=== PATIENT | male | born 1975 | race Hispanic/Latino ===

== ENCOUNTER 2017-12-12 03:13 | Inpatient (IN) | payer OTHER ==
[2017-12-12] MEDS ORDERED: ASPIRIN ONE (04:07)
[2017-12-12] MEDS ORDERED: NITRO-BID 2% TP ONE ×2 (04:09→07:17)
--- NOTE | 2017-12-12 04:16 | Emergency Department Report ---
ED Shortness of Breath HPI - General Chief Complaint: Dyspnea/Respdistress Stated Complaint: CHEST PAIN Time Seen by Provider: 12/12/17 03:40 Source: patient Mode of arrival: Ambulatory Limitations: No Limitations - History of Present Illness Initial Comments: 42-year-old man with history of heart failure, presents with 3-4 day history of progressive shortness of breath and swelling of extremities. He denies any chest pain, but has increasing shortness of breath, initially on exertion, but now at rest, is diaphoretic, tachycardic, and with swollen lower extremities. He has no cough or congestion, no fever chills or diaphoresis, no abdominal pain , no back pain. Patient has been noncompliant with medicines, due to loss of insurance, inability to afford medications, but has not been on any medications for either his hypertension or heart failure for at least a year. He also has not had any routine medical care during that time as well. Past medical history is significant for previously described heart failure, no definite history of myocardial infarction, but patient has had a stroke several years ago with minimal residual, and he also has a history of aortic dissection. He briefly smoked in his teenage years, but has no underlying lung disease, no COPD, no asthma. - Related Data Previous Rx's Medication Instructions Recorded Last Taken Type Aspirin [Aspirin BABY CHEW TAB] 81 mg PO QDAY #30 tab.chew 05/04/14 12/11/17 Rx Allergies Allergy/AdvReac Type Severity Reaction Status Date / Time No Known Allergies Allergy Verified 12/12/17 03:37 ED Review of Systems ROS: Stated complaint: CHEST PAIN Other details as noted in HPI Constitutional: diaphoresis, weakness. denies: fever ENT: denies: ear pain, throat pain Respiratory: shortness of breath, SOB with exertion. denies: wheezing Cardiovascular: palpitations, dyspnea on exertion. denies: chest pain, syncope , paroxysmal nocturnal dyspnea Endocrine: excessive sweating, flushing. denies: intolerance to cold, intolerance to heat Gastrointestinal: denies: abdominal pain, nausea, diarrhea Genitourinary: denies: urgency, dysuria Musculoskeletal: denies: back pain, joint swelling, arthralgia Skin: denies: rash, lesions Neurological: denies: headache, weakness, paresthesias Psychiatric: denies: anxiety, depression Hematological/Lymphatic: denies: easy bleeding, easy bruising ED Past Medical Hx - Past Medical History Hx Hypertension: Yes Hx Congestive Heart Failure: Yes Hx Diabetes: No (borderline) Hx Asthma: No Hx COPD: No Additional medical history: previous abdominal aortic dissection; [place] Palsy - Surgical History Additional Surgical History: Fractured jaw repair - Social History Smoking Status: Never Smoker Substance Use Type: Alcohol - Medications Home Medications: Home Medications Medication Instructions Recorded Confirmed Last Taken Type Aspirin [Aspirin BABY CHEW TAB] 81 mg PO QDAY #30 tab.chew 05/04/14 12/12/17 Rx ED Physical Exam - General Limitations: No Limitations General appearance: alert, anxious, in distress (diaphoretic, tachypneic, tachycardic), other (diaphoretic) - Head Head exam: Present: atraumatic, normocephalic - Eye Eye exam: Present: PERRL - ENT ENT exam: Present: normal exam, mucous membranes moist - Neck Neck exam: Present: normal inspection, full ROM. Absent: tenderness - Respiratory Respiratory exam: Present: normal lung sounds bilaterally, respiratory distress (decreased oxygen saturation, 89-90% on room air), rales (a few posterior rales , bilateral). Absent: wheezes, rhonchi - Cardiovascular Cardiovascular Exam: Present: tachycardia. Absent: regular rate, systolic murmur, diastolic murmur - GI/Abdominal GI/Abdominal exam: Present: soft, normal bowel sounds, other (obese). Absent: tenderness - Rectal Rectal exam: Present: deferred - Extremities Exam Extremities exam: Present: full ROM, pedal edema. Absent: tenderness, calf tenderness - Back Exam Back exam: Present: normal inspection. Absent: tenderness - Neurological Exam Neurological exam: Present: alert, oriented X3, CN II-XII intact. Absent: motor sensory deficit - Psychiatric Psychiatric exam: Present: agitated, anxious - Skin Skin exam: Present: warm, diaphoretic ED Course Vital Signs 12/12/17 12/12/17 12/12/17 03:30 03:37 03:46 Temperature 36.6 C Pulse Rate 165 H 51 L 120 H Respiratory 41 H 26 H 23 Rate Blood Pressure 116/83 175/134 O2 Sat by Pulse 88 90 96 Oximetry 12/12/17 12/12/17 12/12/17 03:51 04:00 04:16 Temperature Pulse Rate 119 H 149 H Respiratory 26 H 20 21 Rate Blood Pressure 175/134 146/122 O2 Sat by Pulse 95 97 96 Oximetry 12/12/17 12/12/17 04:30 04:46 Temperature Pulse Rate 151 H 137 H Respiratory 26 H 16 Rate Blood Pressure 175/134 176/133 O2 Sat by Pulse 95 96 Oximetry - Reevaluation(s) Reevaluation #1: 12/12/17 06:11 Patient's blood pressure significantly improved, after Cardene drip initiated, blood pressure now 140/90 on the patient still diaphoretic, feels flushed, but this preceded onset of this medication. Furosemide has also been administered. Otherwise he is feeling stable, looks much more comfortable. - Consultations Consultation #1: 12/12/17 06:12 Dr. Gillis contacted at 0530 hours, will admit patient, will need ICU admission since is currently receiving IV antihypertensive drip, the patient has elevated d-dimer, and will need CT angiography to rule out pulmonary embolism, and will also have abdominal aortic angiography to evaluate status of dissection. ED Medical Decision Making - Lab Data Result diagrams: 12/12/17 03:49 12/12/17 03:52 - Medical Decision Making Patient's findings are compatible with acute heart failure, with a markedly elevated BNP of 7900, but he also has a significantly elevated d-dimer. He has required a Cardene drip for management of his blood pressure to decrease afterload on his heart, and is also been given IV Lasix. With Cardene drip continuing, he will need ICU admission for the time being. - Differential Diagnosis heart failure, myocardial infarction, pulmonary embolism, dissection Critical Care Time: Yes Critical care attestation.: If time is entered above; I have spent that time in minutes in the direct care of this critically ill patient, excluding procedure time. Critical Care Time: 60 minutes of critical care time was provided in managing this patient with decompensated heart failure with uncontrolled hypertension secondary to medication noncompliance, requiring intravenous medication for control of blood pressure and further evaluation for additional complicating issues such as pulmonary embolism, or continued dissection of this previous abdominal aortic dissection. No billable procedures were performed during this examination. ED Disposition Clinical Impression: Aortic dissection, thoracoabdominal, Acute respiratory distress Heart failure Qualifiers: Heart failure type: systolic Heart failure chronicity: acute on chronic Qualified Code(s): I50.23 - Acute on chronic systolic (congestive) heart failure Hypertension Qualifiers: Hypertension type: essential hypertension Qualified Code(s): I10 - Essential ( primary) hypertension Dyspnea Qualifiers: Dyspnea type: acute respiratory distress Qualified Code(s): R06.03 - Acute respiratory distress Disposition: -09 OP ADMIT IP TO THIS HOSP Is pt being admited?: Yes Does the pt Need Aspirin: No Condition: Stable Instructions: Hypertension (ED) Referrals: PRIMARY CARE, [Primary Care Provider] - 3-5 Days Time of Disposition: 05:30
--- NOTE | 2017-12-12 04:18 | XRay Report ---
FINAL REPORT PROCEDURE: XR CHEST 1V AP TECHNIQUE: Chest radiograph anteroposterior view. CPT 93324 HISTORY: Dyspnea COMPARISON: No prior studies are available for comparison. FINDINGS: Heart: Heart size is slightly pronounced. Mediastinum/Vessels: Normal. Lungs/Pleural space: Normal. Bony thorax: No acute osseous abnormality. Life support devices: None. IMPRESSION: There is no evidence of an acute cardiopulmonary process. Mild cardiomegaly.
[2017-12-12 04:24] LABS: Basophils # (Auto) 0.1 K/mm3 (0.0-0.1); Basophils % (Auto) 0.7 % (0.0-1.8); Eosinophils # (Auto) 0.1 K/mm3 (0.0-0.4); Eosinophils % (Auto) 1.2 % (0.0-4.3); Hematocrit 42.1 % (35.5-45.6); Hemoglobin 13.5 gm/dl (11.8-15.2); Lymphocytes # (Auto) 1.8 K/mm3 (1.2-5.4); Lymphocytes % (Auto) 16.4 % (13.4-35.0); Mean Corpuscular HGB Conc 32 % (32-34); Mean Corpuscular Hemoglobin 26 pg (28-32); Mean Corpuscular Volume 81 fl (84-94); Monocytes # (Auto) 0.8 K/mm3 (0.0-0.8); Monocytes % (Auto) 7.7 % (0.0-7.3); Platelet Count 205 K/mm3 (140-440); Red Blood Count 5.18 M/mm3 (3.65-5.03); Red Cell Distribution Width 17.5 % (13.2-15.2)
[2017-12-12 04:36] LABS: INR 1.05 (0.87-1.13)
[2017-12-12 04:49] LABS: Alanine Aminotransferase 61 units/L (7-56); Albumin 3.3 g/dL (3.9-5); BUN/Creatinine Ratio 17; Blood Urea Nitrogen 19 mg/dL (9-20); Calcium 8.8 mg/dL (8.4-10.2); Hemolysis Index 0
[2017-12-12] MEDS ORDERED: CARDENE 50 MG in NACL 0.9% 250ML 230 ML IV SCH (05:00)
[2017-12-12] MEDS ORDERED: LASIX ONE (05:17)
--- NOTE | 2017-12-12 07:05 | Cat Scan Report ---
FINAL REPORT PROCEDURE: CT ANGIO CHEST TECHNIQUE: Computerized tomographic angiography of the chest was performed after the IV injection of iodinated nonionic contrast including image processing. The image data was postprocessed using 2-dimensional multiplanar reformatted (MPR) and 3-dimensional (MIP and/or volume rendered) techniques. HISTORY: difficulty breathing, elevated d dimer, hx HF COMPARISON: No prior studies are available for comparison. FINDINGS: Heart and pericardium: Normal. Thoracic aorta: The ascending aorta has a slight aneurysmal dilatation at 4.2 centimeters. There is some tortuosity and ectasia the aortic arch. Ectasias descending thoracic aorta is noted. In the distal descending thoracic aorta there is a dissection. Patient's history states there is a descending thoracic dissection. No prior images are available for review at this time.. Pulmonary vasculature: There is no evidence of pulmonary arterial emboli.. Lymph nodes: There are few scattered small lymph nodes in mediastinum these measure to 15 millimeters.. Lungs: Slight scattered infiltrates right lower and midlung, and left lower lung. The airway is patent.. Pleural space: No effusion, thickening, or pneumothorax. Musculoskeletal structures: No significant abnormality. IMPRESSION: There is no evidence of pulmonary arterial emboli. Descending thoracic aorta tortuosity and dissection noted in the distal descending thoracic aorta extending into the abdominal aorta and iliac arteries. The patient has a history of descending aortic aneurysm, no prior studies are available for review. Slight scattered infiltrates right lower and midlung as well as left lower lung is identified.
[2017-12-12] MEDS ORDERED: LASIX IV ONE (07:18)
[2017-12-12] MEDS ORDERED: ASPIRIN PO ONE (07:18)
--- NOTE | 2017-12-12 07:23 | Cat Scan Report ---
FINAL REPORT PROCEDURE: CT ANGIO ABDOMEN PELVIS TECHNIQUE: Computerized axial tomographic angiography of the abdomen and pelvis was performed after the IV injection of iodinated nonionic contrast. The image data was postprocessed using 2-dimensional multiplanar reformatted (MPR) and 3-dimensional (MIP and/or volume rendered) techniques. HISTORY: hx abd aortic dissection; eval status COMPARISON: No prior studies are available for comparison. FINDINGS: There is a descending thoracic aortic dissection starting in the distal thoracic descending aorta. The dissection extends through index into the bilateral common iliac arteries. Aneurysm of the infrarenal abdominal aorta measures 6.2 centimeters. Aneurysm of the iliac arteries is noted. On right common iliac artery measures 4.4 centimeters. On the left common iliac artery measures 4.8 centimeters. The dissection does not extend into the external iliac arteries or the femoral arteries. Superior mesenteric, celiac and inferior mesenteric arteries are opacified. Bilateral renal arteries are opacified. Correlation with previous aortic imaging would be of benefit this patient. No prior studies are available for review with this study. No evidence intestinal obstruction. Moderate fecal debris throughout the colon. The liver and spleen are normal. The gallbladder and pancreas are normal. No hydronephrosis. The osseous structures are appropriate for age with mild degenerative changes of the spine. IMPRESSION: Descending thoracic and abdominal aorta dissection extending through the bilateral common iliac arteries. Aneurysm of the infrarenal abdominal aorta measures 6.2 centimeters. Bilateral common iliac artery aneurysms are noted as described. The dissection does not extend into the external iliac or femoral arterial structures. Correlation with previous aortic imaging is recommended. The patient does have a history of aortic dissection. The above findings are discussed with the patient's ER physician Dr. Salvador at the time of dictation 0709 Eastern standard time on 12/12/2017
--- NOTE | 2017-12-12 08:34 | History and Physical Report ---
History of Present Illness Date of examination: 12/12/17 Date of admission: 12/12/17 06:07 Chief complaint: Chest pain and shortness of breath for 2 days History of present illness: Patient is 42 yo with history of hypertension, CHF, aortic aneurysm with chronic dissection. He presents with chest pain and shortness of breath for 2 days. Chest pain is mid sternal, 8 out of 10 in intensity, no radiation, worse on exertion. Shortness of breath also worse on exertion and lying flat. He states he has not taken any of his meds in more than 1 yr because he has no insurance, does not have a PCP and has no money. In ED, found to have rapid atrial fibrillation, CHF exacerbation, hypertensive emergency, chronic dissection aortic aneurysm. Will admit to ICU. Past History Past Medical History: heart failure, hypertension, other (Chronic aortic aneurysm dissection, borderline diabetes) Past Surgical History: Other (jaw surgery) Social history: , full code, other (Alcohol occasionally). denies: smoking, prescription drug abuse, IV drug use Family history: diabetes, hypertension Medications and Allergies Allergies Allergy/AdvReac Type Severity Reaction Status Date / Time No Known Allergies Allergy Verified 12/12/17 03:37 Home Medications Medication Instructions Recorded Confirmed Last Taken Type Aspirin [Aspirin BABY CHEW TAB] 81 mg PO QDAY #30 tab.chew 05/04/14 12/12/17 Rx Active Meds: Active Medications Nicardipine HCl 50 mg/ Sodium (Chloride) 250 mls @ 25 mls/hr IV TITR SILVIA; Protocol Last Titration: 12/12/17 07:42 Dose: 2.5 mg/hr, 12.5 mls/hr Labetalol HCl 200 mg/ Dextrose 200 mls @ 120 mls/hr IV TITR SILVIA; Protocol Review of Systems All systems: negative (No fever, no headache, no abd pain, no urinary symptoms. All other systems reviewed and are neg) Exam - Physical Exam Narrative exam: Constitutional; Not in acute distress,morbidly obese HEENT: Atraumatic, normocephalic Neck: supple, no lymphadenopathy, JVD or thyromegaly Lungs: Clear to auscultation, bilaterally, no wheeze, no crackles CVS; S1-S2 irregular, irregular,rapid, no murmurs, rubs or gallop, Abdomen; soft, non-tender, non distended,bowel sounds are normal, Musculoskeletal; Bilateral pitting lower ext edema, TRAVELING ACCOUNTANT: awake, alert,oriented x3, no focal neurological signs Psych:normal mood - Constitutional Vitals: Temp Pulse Resp BP Pulse Ox 97.8 F 130 H 29 H 155/115 96 12/12/17 03:37 12/12/17 08:00 12/12/17 08:00 12/12/17 08:00 12/12/17 08:00 Results - Labs CBC & Chem 7: 12/13/17 05:09 12/13/17 05:09 Labs: Abnormal lab results 12/12/17 12/12/17 12/12/17 Range/Units 03:49 03:52 03:52 RBC 5.18 H (3.65-5.03) M/mm3 MCV 81 L (84-94) fl MCH 26 L (28-32) pg RDW 17.5 H (13.2-15.2) % Ralls % (Auto) 7.7 H (0.0-7.3) % Seg Neutrophils % 74.0 H (40.0-70.0) % Seg Neutrophils # 7.9 H (1.8-7.7) K/mm3 D-Dimer 1391.51 H (0-234) ng/mlDDU Potassium 3.3 L (3.6-5.0) mmol/L Chloride 97.1 L (98-107) mmol/L Glucose 150 H (75-100) mg/dL AST 41 H (5-40) units/L ALT 61 H (7-56) units/L NT-Pro-B Natriuret Pep 7260 H (0-450) pg/mL Total Protein 5.9 L (6.3-8.2) g/dL Albumin 3.3 L (3.9-5) g/dL Assessment and Plan Atrial fibrillation with rapid ventricular response. Admit to ICU Cardizem 20mg iv x 1 dose stat, then cardizem drip, Obtain Echo Consult cardiology Hypertensive emergency. Initially started on cardene drip, but on hold because BP dropped. Will dc Cardene and start Cardizem drip to manage rapid afib and hypertensive emergency Chronic dissection aortic aneurysm Consult vasc surg Chest pain. cardiology consulted. Acute resp failure due to CHF exacerbation,rapid afib. Supplemental Oxygen. Pulm consulted Acute on chronic diastolic CHF. He has been out of meds for more than 1 yr. Give Lasix, Coreg, Strict fluid I/O Repeat Echo. EF was 55% in 2015 Borderline diabetes. Check A1C Fingerstick qac and hs Medical non compliance because he has no insurance and no money to buy meds or follow up with Doctors. Consult case management Full code status
[2017-12-12] MEDS ORDERED: MORPHINE IV PRN (08:38)
[2017-12-12] MEDS ORDERED: SODIUM CHLORIDE FLUSH SYRINGE 10 ML IV PRN (08:38)
[2017-12-12] MEDS ORDERED: CARDIZEM IV STA (08:43)
[2017-12-12] MEDS ORDERED: NORMODYNE 200 MG in D5W 160 ML IV SCH (09:00)
[2017-12-12] MEDS ORDERED: COREG PO SCH (10:00)
[2017-12-12] MEDS: K-DUR PO SCH ×2 (10:37→22:10)
[2017-12-12] MEDS: NORVASC PO SCH (10:37)
[2017-12-12] MEDS: PEPCID IV SCH ×2 (10:38→22:10)
[2017-12-12] MEDS: CARDIZEM/D5W 100MG/100ML 100 MG/100 ML BAG IV SCH ×2 (10:39→15:33)
[2017-12-12] MEDS: SODIUM CHLORIDE FLUSH SYRINGE 10 ML IV SCH (10:40)
--- NOTE | 2017-12-12 12:22 | Event Note ---
Date: 12/12/17 Cardiology consult. Full note dictated . .
--- NOTE | 2017-12-12 14:17 | Consultation ---
REASON FOR CONSULTATION: Hypertension and atrial fibrillation. HISTORY OF PRESENT ILLNESS: This 42-year-old patient known to have hypertension for more than 5 years, not on treatment for the last 2 years because of inability to buy the medication and no medical insurance. The patient came with shortness of breath for 4 days duration and swelling of lower extremities. In the Emergency Room, he was noted to have extremely high blood pressure in the range of 175/134. He was started on Cardene drip and blood pressure was noted to improve and is admitted for further management of heart failure and hypertension as well as atrial fibrillation with rapid ventricular rate. In the past, he was noted to have abdominal aortic dissection and distal thoracic dissection from echocardiogram and CT of the chest. He had cardiac catheterization in 2014 by Andres Singh, which revealed normal coronaries. REVIEW OF SYSTEMS: The patient has no history of diabetes mellitus or any known hyperlipidemia or thyroid disease. CARDIOVASCULAR: As mentioned before. He has history of heart failure and hypertension, not taking medications. GI: No nausea or vomiting. NEUROLOGICAL: No history of TIA or stroke. No history of headache. SOCIAL HISTORY: Details are not known. No history of smoking, but he does take alcohol. PHYSICAL EXAMINATION: GENERAL: The patient is in mild cardiorespiratory distress. VITAL SIGNS: His blood pressure today has been up to 196/122 and it has come down to 132/76. Pulse has been varying from 136 and the last pulse is about 86 per minute. Respirations 27 per minute. NECK: JVP is elevated at 40 degrees. CARDIOVASCULAR: Irregular rhythm, rapid heart rate. S3 is noted. Cannot hear any murmurs. LUNGS: Revealed bibasilar rales. ABDOMEN: Soft, nontender. Bowel sounds are active. EXTREMITIES: Femoral pulses felt well. EXTREMITIES: Reveal +2 edema. Peripheral pulses felt well. LABORATORY DATA: His hemoglobin is 13.1 g percent. MCV is 83. Potassium 3.3. His magnesium is 2.1. CK is 228. Troponin x 3 negative. Chest x-ray revealed mild cardiomegaly and haziness at the bases. CT of the chest revealed no evidence of pulmonary emboli. His aneurysmal dilatation of ascending aorta at 4.2 cm. Tortuosity and ectasia of the aortic arch is noted. Distal aorta showed dissection, which has been noted in 2014. Abdominal/pelvis CTA revealed a descending thoracic and abdominal aorta dissection extending through the bilateral common iliac arteries. Aneurysm of the infrarenal abdominal aorta measuring 6.2 cm. Bilateral common iliac artery aneurysms are noted. Dissection does not extend into external iliac or femoral arteries. Echocardiogram was done to aneurysm be reviewed. EKG revealed atrial fibrillation with rapid ventricular rate, left ventricular hypertrophy. CLINICAL IMPRESSION: 1. Hypertension, malignant. 2. Congestive heart failure, probably due to rapid heart rate and hypertension. Echocardiogram will be done for systolic or diastolic heart failure. 3. Atrial fibrillation with rapid ventricular rate. 4. Abdominal aortic aneurysm and distal thoracic artery aneurysm . DISCUSSION: The patient will be started on Cardizem drip to control the heart rate and also beta blockers, calcium blockers. We will obtain a Vascular Surgery consult. The aim is to control the heart rate and the blood pressure.Will anticoagulate once cleared by vascular surgery. JOB# [id number] JIMMY/TOI BEJARANO
--- NOTE | 2017-12-12 15:18 | Consultation ---
History of Present Illness Consult date: 12/12/17 Requesting physician: RAKEL ANDREA Reason for consult: obstructive sleep apnea, other (afib with RVR, aortic dissection, hypertensive emergency) History of present illness: 42 y/o obese male, with known hTN and unfortunate noncompliance secondary to lack of funding. Patient presented with chest pain, shortness of breath and found to be in hypertensive emergency. Placed on Cardene and Cardizem drip and transitioned to ICU. Has since been started on PO medication and remains on dilt drip but cardene is off. Past History Past Medical History: heart failure, hypertension, other (Chronic aortic aneurysm dissection, borderline diabetes) Past Surgical History: Other (jaw surgery) Social history: , full code, other (Alcohol occasionally). denies: smoking, prescription drug abuse, IV drug use Family history: diabetes, hypertension Medications and Allergies Allergies Allergy/AdvReac Type Severity Reaction Status Date / Time No Known Allergies Allergy Verified 12/12/17 03:37 Home Medications Medication Instructions Recorded Confirmed Last Taken Type Aspirin [Aspirin BABY CHEW TAB] 81 mg PO QDAY #30 tab.chew 05/04/14 12/12/17 Rx Active Meds: Active Medications Amlodipine Besylate (Norvasc) 10 mg PO QDAY [facility] Last Admin: 12/12/17 10:37 Dose: 10 mg Famotidine (Pepcid) 20 mg IV BID [facility] Last Admin: 12/12/17 10:38 Dose: 20 mg Furosemide (Lasix) 40 mg IV 0600,1800 [facility] Diltiazem HCl (Cardizem/D5w 100mg/100ml) 100 mg in 100 mls @ 5 mls/hr IV TITR SILVIA; Protocol Last Titration: 12/12/17 11:16 Dose: 15 mg/hr, 15 mls/hr Metoprolol Tartrate (Lopressor) 25 mg PO BID [facility] Morphine Sulfate (Morphine) 2 mg IV Q4H PRN PRN Reason: Pain, Moderate (4-6) Potassium Chloride (K-Dur) 40 meq PO BID [facility] Stop: 12/15/17 09:59 Last Admin: 12/12/17 10:37 Dose: 40 meq Sodium Chloride (Sodium Chloride Flush Syringe 10 Ml) 10 ml IV BID [facility] Last Admin: 12/12/17 10:40 Dose: 10 ml Sodium Chloride (Sodium Chloride Flush Syringe 10 Ml) 10 ml IV PRN PRN PRN Reason: LINE FLUSH Review of Systems All systems: negative Physical Examination Vital signs: Vital Signs Pulse Resp Pulse Ox 165 H 41 H 88 12/12/17 03:30 12/12/17 03:30 12/12/17 03:30 General appearance: no acute distress, alert, other (morbidly obese) Eyes: non-icteric ENT: oropharynx moist Neck: supple, other (large in circumference, greater than 17) Effort: mildly labored Ascultation: Bilateral: diminished breath sounds, rales Percussion: Bilateral: not dull Tactile fremitus: Bilateral: normal Cardiovascular: irregular rhythm (but currently rate controlled) Gastrointestinal: normoactive bowel sounds, soft, other (obese) Extremities: no cyanosis, edema normal mental status, non-focal exam mood appropriate, affect normal Results - Laboratory Findings CBC and BMP: 12/12/17 03:49 12/12/17 03:52 PT/INR, D-dimer PT 14.3 Sec. (12.2-14.9) 12/12/17 03:52 INR 1.05 (0.87-1.13) 12/12/17 03:52 D-Dimer 1391.51 ng/mlDDU (0-234) H 12/12/17 03:52 Abnormal lab findings: Abnormal Labs 12/12/17 12/12/17 12/12/17 03:49 03:52 03:52 RBC 5.18 H MCV 81 L MCH 26 L RDW 17.5 H Burt % (Auto) 7.7 H Seg Neutrophils % 74.0 H Seg Neutrophils # 7.9 H D-Dimer 1391.51 H Potassium 3.3 L Chloride 97.1 L Glucose 150 H Hemoglobin A1c Phosphorus AST 41 H ALT 61 H NT-Pro-B Natriuret Pep 7260 H Total Protein 5.9 L Albumin 3.3 L 12/12/17 12/12/17 06:41 12:05 RBC MCV MCH RDW Burt % (Auto) Seg Neutrophils % Seg Neutrophils # D-Dimer Potassium Chloride Glucose Hemoglobin A1c 6.3 H Phosphorus 4.70 H AST ALT NT-Pro-B Natriuret Pep Total Protein Albumin - Diagnostic Findings Chest x-ray: image reviewed (cardiomegaly, has some ground glass on CT of chest) Assessment and Plan 42 y/o obese male with acute respiratory failure secondary to hypertensive emergency and afib RVR and untreated sleep apnea. 1. Rate control and BP per cards. They will also determine the need for anticoagulation 2. Will order BIPAP therapy for QHS 3. Weight loss encouraged
--- NOTE | 2017-12-12 17:31 | Consultation ---
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 He states he is unsure who he followed up with. Since his initial diagnosis he has lost his insurance and he has been noncompliant with his antihypertensive medications, however he believes his blood pressure has been controlled well becuase he has not experienced his usual headaches, that he has when his pressure is elevated. He presented to the emergency department with a 2 day history of severe, worsening shortness of breath associated with midsternal chest pain. 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 He denies abdominal pain at this time and has no evidence of malperfusuion. Past History Past Medical History: heart failure, hypertension, other (Chronic aortic aneurysm dissection, borderline diabetes, morbid obesity) Past Surgical History: Other (jaw surgery) Social history: , full code, other (Alcohol occasionally). denies: smoking, prescription drug abuse, IV drug use Family history: diabetes, hypertension Medications and Allergies Allergies Allergy/AdvReac Type Severity Reaction Status Date / Time No Known Allergies Allergy Verified 12/12/17 03:37 Home Medications Medication Instructions Recorded Confirmed Last Taken Type Aspirin [Aspirin BABY CHEW TAB] 81 mg PO QDAY #30 tab.chew 05/04/14 12/12/17 Rx Active Meds: Active Medications Amlodipine Besylate (Norvasc) 10 mg PO QDAY FORMERLY [facility], [facility]1983 Last Admin: 12/12/17 10:37 Dose: 10 mg Famotidine (Pepcid) 20 mg IV BID FOR[facility], [facility]1983 Last Admin: 12/12/17 10:38 Dose: 20 mg Furosemide (Lasix) 40 mg IV 0600,1800 FOR[facility], [facility]1983 Diltiazem HCl (Cardizem/D5w 100mg/100ml) 100 mg in 100 mls @ 5 mls/hr IV TITR FORMERLY [facility], [facility]; Protocol Last Admin: 12/12/17 15:33 Dose: 15 mg/hr, 15 mls/hr Metoprolol Tartrate (Lopressor) 25 mg PO BID FOR[facility], [facility]1983 Morphine Sulfate (Morphine) 2 mg IV Q4H PRN PRN Reason: Pain, Moderate (4-6) Potassium Chloride (K-Dur) 40 meq PO BID FOR[facility], [facility]1983 Stop: 12/15/17 09:59 Last Admin: 12/12/17 10:37 Dose: 40 meq Sodium Chloride (Sodium Chloride Flush Syringe 10 Ml) 10 ml IV BID [facility], [facility] Last Admin: 12/12/17 10:40 Dose: 10 ml Sodium Chloride (Sodium Chloride Flush Syringe 10 Ml) 10 ml IV PRN PRN PRN Reason: LINE FLUSH Review of Systems All systems: negative Exam - Constitutional Vitals: Temp Pulse Resp BP Pulse Ox 98.1 F 79 36 H 146/87 91 12/12/17 16:00 12/12/17 16:00 12/12/17 16:00 12/12/17 16:00 12/12/17 16:00 General appearance: Present: no acute distress - Neck Neck: Present: supple - Respiratory Respiratory effort: normal - Cardiovascular Heart rate: 88 - Extremities Extremities: no ischemia Extremity abnormal: pulses diminished (unable to palpate pedal pulses) - Abdominal General gastrointestinal: Present: soft, non-tender, other (protuberant) Male genitourinary: Present: deferred Results - Labs CBC & Chem 7: 12/12/17 03:49 12/12/17 03:52 Labs: Abnormal lab results 12/12/17 12/12/17 12/12/17 Range/Units 03:49 03:52 03:52 RBC 5.18 H (3.65-5.03) M/mm3 MCV 81 L (84-94) fl MCH 26 L (28-32) pg RDW 17.5 H (13.2-15.2) % [place] % (Auto) 7.7 H (0.0-7.3) % Seg Neutrophils % 74.0 H (40.0-70.0) % Seg Neutrophils # 7.9 H (1.8-7.7) K/mm3 D-Dimer 1391.51 H (0-234) ng/mlDDU Potassium 3.3 L (3.6-5.0) mmol/L Chloride 97.1 L (98-107) mmol/L Glucose 150 H (75-100) mg/dL Hemoglobin A1c (4-6) % Phosphorus (2.5-4.5) mg/dL AST 41 H (5-40) units/L ALT 61 H (7-56) units/L NT-Pro-B Natriuret Pep 7260 H (0-450) pg/mL Total Protein 5.9 L (6.3-8.2) g/dL Albumin 3.3 L (3.9-5) g/dL 12/12/17 12/12/17 Range/Units 06:41 12:05 RBC (3.65-5.03) M/mm3 MCV (84-94) fl MCH (28-32) pg RDW (13.2-15.2) % [place] % (Auto) (0.0-7.3) % Seg Neutrophils % (40.0-70.0) % Seg Neutrophils # (1.8-7.7) K/mm3 D-Dimer (0-234) ng/mlDDU Potassium (3.6-5.0) mmol/L Chloride (98-107) mmol/L Glucose (75-100) mg/dL Hemoglobin A1c 6.3 H (4-6) % Phosphorus 4.70 H (2.5-4.5) mg/dL AST (5-40) units/L ALT (7-56) units/L NT-Pro-B Natriuret Pep (0-450) pg/mL Total Protein (6.3-8.2) g/dL Albumin (3.9-5) g/dL - Imaging and Cardiology CT scan - abdomen: image reviewed CT scan - chest: image reviewed Assessment and Plan The patient is a 42 year old male with a 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 He has been noncompliant with his medication secondary to lack of insurance, however he states he has been referred to the [facility] for assistance with his medications upon discharge. The patients current Disscetion and Aneurysm are chronic however I dont currently have films to compare for changes in size. He currently needs to be managed with a systolic blood pressure below 130 and maintain a HR less than 70. Given that the patients aneurysm has progressed to greater than 6 cm he is at increased risk of rupture and requires repair however this is not emergent and can be done electively as an outpatient. With his body habitus it would benefit him to avoid and open repair, as these operations already carry a significant morbidity and mortality rate. He has a complex anatomy that is difficult but not impossible to repair with and endovascular technique, however this would be best achieved at a tertiary center such as [place] or [place] where they have more experience with these complex repairs.
[2017-12-12] MEDS: LASIX IV SCH (18:38)
[2017-12-12] MEDS: APRESOLINE IV PRN (18:48)
[2017-12-12] MEDS: CARDENE 50 MG in NACL 0.9% 250ML 230 ML IV SCH (21:54)
[2017-12-12] MEDS: LOPRESSOR PO SCH (22:10)
[2017-12-13] MEDS: LASIX IV SCH ×2 (05:53→18:45)
[2017-12-13 06:14] LABS: Basophils # (Auto) 0.1 K/mm3 (0.0-0.1); Basophils % (Auto) 0.8 % (0.0-1.8); Eosinophils # (Auto) 0.3 K/mm3 (0.0-0.4); Eosinophils % (Auto) 2.9 % (0.0-4.3); Hematocrit 40.7 % (35.5-45.6); Hemoglobin 13.3 gm/dl (11.8-15.2); Lymphocytes # (Auto) 1.5 K/mm3 (1.2-5.4); Lymphocytes % (Auto) 15.1 % (13.4-35.0); Mean Corpuscular HGB Conc 33 % (32-34); Mean Corpuscular Hemoglobin 26 pg (28-32); Mean Corpuscular Volume 81 fl (84-94); Monocytes # (Auto) 0.9 K/mm3 (0.0-0.8); Monocytes % (Auto) 9.3 % (0.0-7.3); Platelet Count 212 K/mm3 (140-440); Red Blood Count 5.05 M/mm3 (3.65-5.03); Red Cell Distribution Width 17.7 % (13.2-15.2)
[2017-12-13] MEDS: CARDIZEM/D5W 100MG/100ML 100 MG/100 ML BAG IV SCH ×4 (06:27→18:45)
[2017-12-13 06:42] LABS: BUN/Creatinine Ratio 16; Blood Urea Nitrogen 18 mg/dL (9-20); Calcium 8.6 mg/dL (8.4-10.2); Hemolysis Index 6
[2017-12-13] MEDS: SODIUM CHLORIDE FLUSH SYRINGE 10 ML IV SCH ×3 (07:47→21:53)
--- NOTE | 2017-12-13 09:06 | Progress Note ---
Assessment and Plan Assessment and plan: Atrial fibrillation with rapid ventricular response. Admitted to ICU Continue cardizem drip, He is now rate controlled Obtain Echo Cardiology following Hypertensive emergency. BP improved on Cardizem drip, Metoprolol, Norvasc Chronic dissection aortic aneurysm Consulted vasc surg and he was evaluated. They recommend conservative management. No indication for urgent surgery Chest pain. cardiology following. Acute respiratory failure due to CHF exacerbation,rapid afib. Supplemental Oxygen. Pulm following Acute on chronic diastolic CHF. He has been out of meds for more than 1 yr. Continue Lasix, Metoprolol, Strict fluid I/O Repeat Echo. EF 35-40% on Echo done this admission Borderline diabetes. A1C 6.3 Fingerstick qac and hs Medical non compliance because he has no insurance and no money to buy meds or follow up with Doctors. Consulted case management Full code status History Interval history: less shortness of breath, No chest pain Hospitalist Physical - Physical exam Narrative exam: Constitutional; Not in acute distress,morbidly obese HEENT: Atraumatic, normocephalic Neck: supple, no lymphadenopathy, JVD or thyromegaly Lungs: Clear to auscultation, bilaterally, no wheeze, no crackles CVS; S1-S2 irregular, irregular, no murmurs, rubs or gallop, Abdomen; soft, non-tender, non distended,bowel sounds are normal, Musculoskeletal; Bilateral pitting lower ext edema, SECOND HELPER: awake, alert,oriented x3, no focal neurological signs Psych:normal mood - Constitutional Vitals: Temp Pulse Resp BP Pulse Ox 98.4 F 79 36 H 135/94 91 12/13/17 08:00 12/13/17 08:50 12/13/17 08:50 12/13/17 08:50 12/13/17 08:50 General appearance: Present: no acute distress Results - Labs CBC & Chem 7: 12/13/17 05:09 12/13/17 05:09 Labs: Laboratory Last Values WBC 10.1 K/mm3 (4.5-11.0) 12/13/17 05:09 RBC 5.05 M/mm3 (3.65-5.03) H 12/13/17 05:09 Hgb 13.3 gm/dl (11.8-15.2) 12/13/17 05:09 Hct 40.7 % (35.5-45.6) 12/13/17 05:09 MCV 81 fl (84-94) L 12/13/17 05:09 MCH 26 pg (28-32) L 12/13/17 05:09 MCHC 33 % (32-34) 12/13/17 05:09 RDW 17.7 % (13.2-15.2) H 12/13/17 05:09 Plt Count 212 K/mm3 (140-440) 12/13/17 05:09 Lymph % (Auto) 15.1 % (13.4-35.0) 12/13/17 05:09 [place] % (Auto) 9.3 % (0.0-7.3) H 12/13/17 05:09 Eos % (Auto) 2.9 % (0.0-4.3) 12/13/17 05:09 Baso % (Auto) 0.8 % (0.0-1.8) 12/13/17 05:09 Lymph # 1.5 K/mm3 (1.2-5.4) 12/13/17 05:09 [place] # 0.9 K/mm3 (0.0-0.8) H 12/13/17 05:09 Eos # 0.3 K/mm3 (0.0-0.4) 12/13/17 05:09 Baso # 0.1 K/mm3 (0.0-0.1) 12/13/17 05:09 Seg Neutrophils % 71.9 % (40.0-70.0) H 12/13/17 05:09 Seg Neutrophils # 7.3 K/mm3 (1.8-7.7) 12/13/17 05:09 PT 14.3 Sec. (12.2-14.9) 12/12/17 03:52 INR 1.05 (0.87-1.13) 12/12/17 03:52 D-Dimer 1391.51 ng/mlDDU (0-234) H 12/12/17 03:52 Sodium 141 mmol/L (137-145) 12/13/17 05:09 Potassium 3.6 mmol/L (3.6-5.0) 12/13/17 05:09 Chloride 97.6 mmol/L (98-107) L 12/13/17 05:09 Carbon Dioxide 31 mmol/L (22-30) H 12/13/17 05:09 Anion Gap 16 mmol/L 12/13/17 05:09 BUN 18 mg/dL (9-20) 12/13/17 05:09 Creatinine 1.1 mg/dL (0.8-1.5) 12/13/17 05:09 Estimated GFR > 60 ml/min 12/13/17 05:09 BUN/Creatinine Ratio 16 % 12/13/17 05:09 Glucose 121 mg/dL (75-100) H 12/13/17 05:09 POC Glucose 123 (70-105) H 12/13/17 07:48 Hemoglobin A1c 6.3 % (4-6) H 12/12/17 12:05 Lactic Acid 1.20 mmol/L (0.7-2.0) 12/12/17 03:52 Calcium 8.6 mg/dL (8.4-10.2) 12/13/17 05:09 Phosphorus 4.70 mg/dL (2.5-4.5) H 12/12/17 06:41 Magnesium 2.00 mg/dL (1.7-2.3) 12/12/17 06:41 Total Bilirubin 0.30 mg/dL (0.1-1.2) 12/12/17 03:52 AST 41 units/L (5-40) H 12/12/17 03:52 ALT 61 units/L (7-56) H 12/12/17 03:52 Alkaline Phosphatase 92 units/L (35-129) 12/12/17 03:52 Troponin T 0.018 ng/mL (0.00-0.029) 12/12/17 12:05 NT-Pro-B Natriuret Pep 7260 pg/mL (0-450) H 12/12/17 03:52 Total Protein 5.9 g/dL (6.3-8.2) L 12/12/17 03:52 Albumin 3.3 g/dL (3.9-5) L 12/12/17 03:52 Albumin/Globulin Ratio 1.3 % 12/12/17 03:52
[2017-12-13] MEDS: LOPRESSOR PO SCH ×2 (10:00→21:52)
[2017-12-13] MEDS: K-DUR PO SCH ×2 (10:00→21:51)
[2017-12-13] MEDS: PEPCID IV SCH ×2 (10:01→21:51)
[2017-12-13] MEDS: NORVASC PO SCH (10:01)
[2017-12-13] MEDS: CARDENE 50 MG in NACL 0.9% 250ML 230 ML IV SCH ×2 (10:03→14:51)
--- NOTE | 2017-12-13 11:33 | Progress Note ---
Assessment and Plan 42 y/o obese male with acute respiratory failure secondary to hypertensive emergency and afib RVR and untreated sleep apnea. 1. Rate control and BP per cards. They are ok with anticoagulation but want to clear it with Vascular first. 2. Continue Bipap therapy for QHS 3. Weight loss encouraged 4. Will start patient on clonidine 0.2mg PO TID and likely will need to titrate up from there. Continue all other medications for heart rate as previously ordered. Hopefully cards will switch over to PO soon. 5. Must keep in mind that patient is unfunded so need to find drugs that are affordable. Will ask CM to look into and help us with this. CCt 31 minutes. Subjective Date of service: 12/13/17 Interval history: No acute events. Called by nursing last night that BP was not controlled so had to be placed back on the cardene drip. Currently at 15 with good blood pressures. Slept with bipap last night. STates that he slept good but does not notice a change in energy levels. Spoke with Cards at bedside, they are ok with anticoagulation of vascular is. Objective Vital Signs - 12hr 12/12/17 12/12/17 12/12/17 23:20 23:30 23:41 Temperature Pulse Rate 76 84 81 Pulse Rate [ From Monitor] Respiratory 37 H 16 33 H Rate Blood Pressure 152/84 152/84 O2 Sat by Pulse 91 98 96 Oximetry 12/12/17 12/12/17 12/13/17 23:48 23:51 00:00 Temperature 97.8 F Pulse Rate 78 70 68 Pulse Rate [ 78 From Monitor] Respiratory 20 14 26 H Rate Blood Pressure 128/82 133/98 119/75 O2 Sat by Pulse 96 95 96 Oximetry 12/13/17 12/13/17 12/13/17 00:11 00:21 00:30 Temperature Pulse Rate 76 68 66 Pulse Rate [ From Monitor] Respiratory 14 18 27 H Rate Blood Pressure 119/75 127/67 134/71 O2 Sat by Pulse 92 97 96 Oximetry 12/13/17 12/13/17 12/13/17 00:40 00:50 01:00 Temperature Pulse Rate 65 68 62 Pulse Rate [ From Monitor] Respiratory 32 H Rate Blood Pressure 134/71 121/75 121/75 O2 Sat by Pulse 96 98 97 Oximetry 12/13/17 12/13/17 12/13/17 01:10 01:20 01:30 Temperature Pulse Rate 62 69 56 L Pulse Rate [ From Monitor] Respiratory Rate Blood Pressure 134/71 119/90 119/90 O2 Sat by Pulse 92 93 90 Oximetry 12/13/17 12/13/17 12/13/17 01:40 01:50 02:00 Temperature Pulse Rate 76 63 65 Pulse Rate [ 78 From Monitor] Respiratory 24 Rate Blood Pressure 128/85 138/93 140/85 O2 Sat by Pulse 84 85 86 Oximetry 12/13/17 12/13/17 12/13/17 02:10 02:20 02:30 Temperature Pulse Rate 64 64 61 Pulse Rate [ From Monitor] Respiratory 31 H 30 H Rate Blood Pressure 128/85 139/86 146/89 O2 Sat by Pulse 89 87 92 Oximetry 12/13/17 12/13/17 12/13/17 02:40 02:50 03:00 Temperature Pulse Rate 70 63 69 Pulse Rate [ From Monitor] Respiratory 34 H 25 H 22 Rate Blood Pressure 140/85 141/91 141/91 O2 Sat by Pulse 92 92 94 Oximetry 12/13/17 12/13/17 12/13/17 03:10 03:20 03:30 Temperature Pulse Rate 65 72 67 Pulse Rate [ From Monitor] Respiratory 24 30 H 32 H Rate Blood Pressure 146/95 154/93 154/93 O2 Sat by Pulse 93 94 92 Oximetry 12/13/17 12/13/17 12/13/17 03:40 03:50 03:57 Temperature Pulse Rate 67 64 71 Pulse Rate [ From Monitor] Respiratory 31 H 32 H 34 H Rate Blood Pressure 151/90 141/83 141/83 O2 Sat by Pulse 92 92 92 Oximetry 12/13/17 12/13/17 12/13/17 04:00 04:10 04:20 Temperature 98.8 F Pulse Rate 64 68 75 Pulse Rate [ 72 From Monitor] Respiratory 20 27 H 27 H Rate Blood Pressure 141/83 137/89 127/88 O2 Sat by Pulse 91 91 91 Oximetry 12/13/17 12/13/17 12/13/17 04:30 04:40 04:50 Temperature Pulse Rate 74 62 71 Pulse Rate [ From Monitor] Respiratory 23 21 28 H Rate Blood Pressure 127/88 127/88 140/95 O2 Sat by Pulse 92 94 93 Oximetry 12/13/17 12/13/17 12/13/17 05:00 05:10 05:20 Temperature Pulse Rate 69 74 66 Pulse Rate [ From Monitor] Respiratory 31 H 21 25 H Rate Blood Pressure 140/95 132/87 144/87 O2 Sat by Pulse 91 97 97 Oximetry 12/13/17 12/13/17 12/13/17 05:30 05:40 05:50 Temperature Pulse Rate 65 70 72 Pulse Rate [ From Monitor] Respiratory 16 25 H 25 H Rate Blood Pressure 141/87 141/87 155/92 O2 Sat by Pulse 94 93 91 Oximetry 12/13/17 12/13/17 12/13/17 06:00 06:10 06:20 Temperature Pulse Rate 73 65 74 Pulse Rate [ 87 From Monitor] Respiratory 29 H 25 H 18 Rate Blood Pressure 155/92 155/96 150/83 O2 Sat by Pulse 91 89 96 Oximetry 12/13/17 12/13/17 12/13/17 06:30 06:40 06:50 Temperature Pulse Rate 73 78 59 L Pulse Rate [ From Monitor] Respiratory 25 H 34 H 32 H Rate Blood Pressure 150/83 141/89 143/102 O2 Sat by Pulse 96 95 94 Oximetry 12/13/17 12/13/17 12/13/17 07:00 07:10 07:21 Temperature Pulse Rate 68 66 72 Pulse Rate [ From Monitor] Respiratory 28 H 12 18 Rate Blood Pressure 143/102 141/97 144/83 O2 Sat by Pulse 92 96 94 Oximetry 12/13/17 12/13/17 12/13/17 07:30 07:41 07:51 Temperature Pulse Rate 68 70 64 Pulse Rate [ From Monitor] Respiratory 16 12 24 Rate Blood Pressure 145/84 145/84 149/88 O2 Sat by Pulse 94 94 95 Oximetry 12/13/17 12/13/17 12/13/17 08:00 08:11 08:21 Temperature 98.4 F Pulse Rate 67 73 68 Pulse Rate [ 67 From Monitor] Respiratory 32 H 25 H 15 Rate Blood Pressure 153/87 153/87 158/89 O2 Sat by Pulse 94 89 96 Oximetry 12/13/17 12/13/17 12/13/17 08:31 08:40 08:50 Temperature Pulse Rate 73 68 79 Pulse Rate [ From Monitor] Respiratory 33 H 36 H 36 H Rate Blood Pressure 132/84 132/84 135/94 O2 Sat by Pulse 94 93 91 Oximetry 12/13/17 12/13/17 10:00 10:01 Temperature Pulse Rate 67 67 Pulse Rate [ From Monitor] Respiratory Rate Blood Pressure 151/84 151/84 O2 Sat by Pulse Oximetry Constitutional: no acute distress, alert, other (morbidly obese) Eyes: non-icteric ENT: oropharynx moist Neck: supple, other (large in circumference, greater than 17) Effort: mildly labored Ascultation: Bilateral: diminished breath sounds, rales Percussion: Bilateral: not dull Tactile fremitus: Bilateral: normal Cardiovascular: irregular rhythm (but currently rate controlled) Gastrointestinal: normoactive bowel sounds, soft, other (obese) Extremities: no cyanosis, edema Neurologic: normal mental status, non-focal exam Psychiatric: mood appropriate, affect normal CBC and BMP: 12/13/17 05:09 12/13/17 05:09 ABG, PT/INR, D-dimer: PT/INR, D-dimer PT 14.3 Sec. (12.2-14.9) 12/12/17 03:52 INR 1.05 (0.87-1.13) 12/12/17 03:52 D-Dimer 1391.51 ng/mlDDU (0-234) H 12/12/17 03:52 Abnormal lab findings: Abnormal Labs 12/12/17 12/12/17 12/12/17 03:49 03:52 03:52 RBC 5.18 H MCV 81 L MCH 26 L RDW 17.5 H [place] % (Auto) 7.7 H [place] # Seg Neutrophils % 74.0 H Seg Neutrophils # 7.9 H D-Dimer 1391.51 H Potassium 3.3 L Chloride 97.1 L Carbon Dioxide Glucose 150 H POC Glucose Hemoglobin A1c Phosphorus AST 41 H ALT 61 H NT-Pro-B Natriuret Pep 7260 H Total Protein 5.9 L Albumin 3.3 L 12/12/17 12/12/17 12/12/17 06:41 11:32 12:05 RBC MCV MCH RDW [place] % (Auto) [place] # Seg Neutrophils % Seg Neutrophils # D-Dimer Potassium Chloride Carbon Dioxide Glucose POC Glucose 124 H Hemoglobin A1c 6.3 H Phosphorus 4.70 H AST ALT NT-Pro-B Natriuret Pep Total Protein Albumin 12/12/17 12/13/17 12/13/17 18:39 05:09 05:09 RBC 5.05 H MCV 81 L MCH 26 L RDW 17.7 H [place] % (Auto) 9.3 H [place] # 0.9 H Seg Neutrophils % 71.9 H Seg Neutrophils # D-Dimer Potassium Chloride 97.6 L Carbon Dioxide 31 H Glucose 121 H POC Glucose 118 H Hemoglobin A1c Phosphorus AST ALT NT-Pro-B Natriuret Pep Total Protein Albumin 12/13/17 07:48 RBC MCV MCH RDW [place] % (Auto) [place] # Seg Neutrophils % Seg Neutrophils # D-Dimer Potassium Chloride Carbon Dioxide Glucose POC Glucose 123 H Hemoglobin A1c Phosphorus AST ALT NT-Pro-B Natriuret Pep Total Protein Albumin
[2017-12-13] MEDS: CATAPRES PO SCH ×2 (14:17→21:51)
--- NOTE | 2017-12-13 14:29 | Progress Note ---
Subjective Date of service: 12/13/17 Interval history: No chest pain or shortness of breath. Patient claims that he is going to attend [facility] in [place], next week for follow up. Would like to be followed. Objective Vital Signs Temp Pulse Pulse Resp BP Pulse Ox 12/13/17 14:17 63 129/84 12/13/17 13:41 140/80 95 12/13/17 13:30 72 26 H 140/80 93 12/13/17 13:21 65 32 H 140/95 92 12/13/17 13:11 71 39 H 140/95 90 12/13/17 13:00 67 36 H 140/95 94 12/13/17 12:51 69 32 H 141/75 92 12/13/17 12:41 63 32 H 126/83 95 12/13/17 12:30 67 35 H 126/83 96 12/13/17 12:21 64 29 H 122/75 93 12/13/17 12:17 66 127/79 12/13/17 12:11 62 22 127/79 96 12/13/17 12:00 98.2 F 64 66 14 127/79 92 12/13/17 11:51 72 15 122/80 95 12/13/17 11:41 67 31 H 125/77 93 12/13/17 11:30 69 22 122/80 94 12/13/17 11:21 69 23 116/69 96 12/13/17 11:11 70 18 125/77 90 12/13/17 11:01 71 20 125/77 12/13/17 10:59 76 18 125/77 12/13/17 10:31 71 30 H 125/77 95 12/13/17 10:21 68 29 H 141/86 92 12/13/17 10:11 73 32 H 146/79 95 12/13/17 10:01 67 151/84 12/13/17 10:00 78 71 18 151/84 94 12/13/17 09:51 67 34 H 151/84 92 12/13/17 09:41 78 31 H 141/78 97 12/13/17 09:31 67 34 H 141/78 94 12/13/17 09:21 78 30 H 142/85 90 12/13/17 09:11 75 38 H 141/96 95 12/13/17 09:00 74 31 H 141/96 90 12/13/17 08:50 79 36 H 135/94 91 18 08:40 68 36 H 132/84 93 12/13/17 08:31 73 33 H 132/84 94 18 08:21 68 15 158/89 96 18 08:11 73 25 H 153/87 89 12/13/17 08:00 98.4 F 67 67 32 H 153/87 94 12/13/17 07:51 64 24 149/88 95 12/13/17 07:41 70 12 145/84 94 12/13/17 07:30 68 16 145/84 94 12/13/17 07:21 72 18 144/83 94 12/13/17 07:10 66 12 141/97 96 12/13/17 07:00 68 28 H 143/102 92 12/13/17 06:50 59 L 32 H 143/102 94 12/13/17 06:40 78 34 H 141/89 95 12/13/17 06:30 73 25 H 150/83 96 12/13/17 06:20 74 18 150/83 96 12/13/17 06:10 65 25 H 155/96 89 12/13/17 06:00 73 87 29 H 155/92 91 12/13/17 05:50 72 25 H 155/92 91 12/13/17 05:40 70 25 H 141/87 93 18 05:30 65 16 141/87 94 12/13/17 05:20 66 25 H 144/87 97 12/13/17 05:10 74 21 132/87 97 12/13/17 05:00 69 31 H 140/95 91 18 04:50 71 28 H 140/95 93 18 04:40 62 21 127/88 94 18 04:30 74 23 127/88 92 18 04:20 75 27 H 127/88 91 18 04:10 68 27 H 137/89 91 18 04:00 98.8 F 64 72 20 141/83 91 18 03:57 71 34 H 141/83 92 18 03:50 64 32 H 141/83 92 18 03:40 67 31 H 151/90 92 07/22/18 03:30 67 32 H 154/93 92 07/22/18 03:20 72 30 H 154/93 94 07//18 03:10 65 24 146/95 93 07/18 03:00 69 22 141/91 94 07/18 02:50 63 25 H 141/91 92 12/13/18 02:40 70 34 H 140/85 92 07/18 02:30 61 30 H 146/89 92 07/18 02:20 64 31 H 139/86 87 07/18 02:10 64 128/85 89 12/13/18 02:00 65 78 24 140/85 86 12/13/18 01:50 63 138/93 85 12/13/18 01:40 76 128/85 84 18 01:30 56 L 119/90 90 12/13/18 01:20 69 119/90 93 12/13/18 01:10 62 134/71 92 12/13/18 01:00 62 121/75 97 07/18 00:50 68 121/75 98 07/18 00:40 65 32 H 134/71 96 22/18 00:30 66 27 H 134/71 96 /22/18 00:21 68 18 127/67 97 12/13/18 00:11 76 14 119/75 92 12/13/18 00:00 97.8 F 68 78 26 H 119/75 96 //18 23:51 70 14 133/98 95 07/21/18 23:48 78 20 128/82 96 07//18 23:41 81 33 H 96 12/12/18 23:30 84 16 152/84 98 07/21/18 23:20 76 37 H 152/84 91 07/21/18 23:10 76 39 H 154/88 90 07//18 23:00 70 35 H 137/87 90 07/21/18 22:50 76 33 H 137/87 90 07/21/18 22:46 77 32 H 137/87 90 07//18 22:40 75 33 H 139/90 89 07/21/18 22:30 79 34 H 168/106 91 07/21/18 22:20 83 28 H 168/106 92 07/21/18 22:10 72 36 H 150/104 93 07/21/18 22:00 72 89 29 H 163/107 97 07/21/18 21:50 73 28 H 163/107 92 07/21/18 21:40 83 33 H 159/109 93 07/21/18 21:30 85 30 H 159/109 94 07/21/18 21:20 76 29 H 156/97 91 07/21/18 21:10 71 31 H 143/107 90 07/21/18 21:00 81 30 H 164/101 95 07/21/18 20:50 74 33 H 164/101 90 07/21/18 20:40 72 32 H 157/104 91 07/21/18 20:30 87 31 H 157/104 95 07/21/18 20:25 83 31 H 164/93 93 07/21/18 20:24 93 07/21/18 20:20 82 30 H 154/104 93 07/21/18 20:10 81 30 H 168/90 93 07/21/18 20:00 98.2 F 76 87 29 H 154/104 97 07/21/18 19:50 79 29 H 154/104 96 07/21/18 19:40 80 24 154/111 95 07/21/18 19:30 83 36 H 154/111 94 07/21/18 19:20 78 30 H 164/90 95 07/21/18 19:10 71 26 H 164/90 94 07/21/18 19:00 68 27 H 153/96 91 07/21/18 18:50 78 28 H 153/99 97 07/21/18 18:48 78 162/111 07/21/18 18:40 74 33 H 162/111 96 07/21/18 18:30 71 36 H 162/111 96 07/21/18 18:20 83 35 H 156/115 92 07/21/18 18:15 74 29 H 164/90 95 07/21/18 18:10 68 31 H 151/115 93 07/21/18 18:00 97 H 87 39 H 151/115 93 07/21/18 17:50 69 36 H 158/98 92 07/21/18 17:40 77 32 H 154/98 97 07/21/18 17:30 77 34 H 154/98 98 07/21/18 17:20 87 31 H 150/101 95 07/21/18 17:10 86 25 H 140/101 95 12/12/17 17:00 87 29 H 140/101 97 12/12/17 16:50 79 40 H 133/102 96 12/12/17 16:40 65 29 H 145/103 94 12/12/17 16:30 79 35 H 145/103 94 12/12/17 16:20 77 38 H 136/94 97 12/12/17 16:10 76 42 H 146/87 96 12/12/17 16:00 98.1 F 79 79 36 H 146/87 91 12/12/17 15:50 87 21 137/102 95 12/12/17 15:40 83 21 128/93 95 12/12/17 15:30 66 31 H 138/88 95 12/12/17 15:20 86 34 H 138/88 94 12/12/17 15:10 76 28 H 146/110 93 12/12/17 15:00 76 32 H 140/92 95 12/12/17 14:50 80 41 H 140/92 96 12/12/17 14:40 68 29 H 128/91 89 12/12/17 14:30 76 30 H 128/91 96 - Physical Examination General: Appears Well, Other (Morbidly obese.) Neck: Positive: neck supple, trachea midline. Negative: JVD/HJR Cardiac: Positive: Irregularly Regular Lungs: Positive: clear to auscultation, Decreased Breath Sounds Abdomen: Positive: Other (morbidly obese. cannot feel any organs or hear any bruit.) Extremities: Present: normal - Labs and Meds CBC 12/13/17 Range/Units 05:09 WBC 10.1 (4.5-11.0) K/mm3 RBC 5.05 H (3.65-5.03) M/mm3 Hgb 13.3 (11.8-15.2) gm/dl Hct 40.7 (35.5-45.6) % Plt Count 212 (140-440) K/mm3 Lymph # 1.5 (1.2-5.4) K/mm3 [place] # 0.9 H (0.0-0.8) K/mm3 Eos # 0.3 (0.0-0.4) K/mm3 Baso # 0.1 (0.0-0.1) K/mm3 Comprehensive Metabolic Panel 12/13/17 Range/Units 05:09 Sodium 141 (137-145) mmol/L Potassium 3.6 (3.6-5.0) mmol/L Chloride 97.6 L (98-107) mmol/L Carbon Dioxide 31 H (22-30) mmol/L BUN 18 (9-20) mg/dL Creatinine 1.1 (0.8-1.5) mg/dL Glucose 121 H (75-100) mg/dL Calcium 8.6 (8.4-10.2) mg/dL - Imaging and Cardiology EKG: report reviewed - Telemetry EKG Rhythm: Atrial Fibrillation
--- NOTE | 2017-12-13 14:39 | Progress Note ---
Assessment and Plan Atrial fibrillation with rapid ventricular response. Admit to ICU Cardizem 20mg iv x 1 dose stat, then cardizem drip, Obtain Echo Start heparin and Coumadin if agreeable with vascular surgery. Hypertensive emergency. Initially started on cardene drip, but on hold because BP dropped. 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 vascular surgery following in the hospital. AAA. Consider endovascular grafting. Patient is high risk for rupture. Not sure he will be compliant with BP medications and follow up.. Acute resp failure due to CHF exacerbation,rapid afib. Supplemental Oxygen. Acute on chronic diastolic CHF. He has been out of meds for more than 1 yr. Give Lasix, Coreg, Strict fluid I/O Repeat Echo. EF was 55% in 201 Objective Vital Signs Temp Pulse Pulse Resp BP Pulse Ox 12/13/17 14:17 63 129/84 12/13/17 13:41 140/80 95 12/13/17 13:30 72 26 H 140/80 93 12/13/17 13:21 65 32 H 140/95 92 12/13/17 13:11 71 39 H 140/95 90 12/13/17 13:00 67 36 H 140/95 94 12/13/17 12:51 69 32 H 141/75 92 12/13/17 12:41 63 32 H 126/83 95 12/13/17 12:30 67 35 H 126/83 96 12/13/17 12:21 64 29 H 122/75 93 12/13/17 12:17 66 127/79 12/13/17 12:11 62 22 127/79 96 12/13/17 12:00 98.2 F 64 66 14 127/79 92 12/13/17 11:51 72 15 122/80 95 12/13/17 11:41 67 31 H 125/77 93 12/13/17 11:30 69 22 122/80 94 12/13/17 11:21 69 23 116/69 96 12/13/17 11:11 70 18 125/77 90 12/13/17 11:01 71 20 125/77 12/13/17 10:59 76 18 125/77 12/13/17 10:31 71 30 H 125/77 95 12/13/17 10:21 68 29 H 141/86 92 07/22/18 10:11 73 32 H 146/79 95 12/13/17 10:01 67 151/84 12/13/17 10:00 78 71 18 151/84 94 12/13/17 09:51 67 34 H 151/84 92 12/13/17 09:41 78 31 H 141/78 97 12/13/17 09:31 67 34 H 141/78 94 12/13/17 09:21 78 30 H 142/85 90 12/13/17 09:11 75 38 H 141/96 95 12/13/17 09:00 74 31 H 141/96 90 12/13/17 08:50 79 36 H 135/94 91 12/13/17 08:40 68 36 H 132/84 93 12/13/17 08:31 73 33 H 132/84 94 12/13/17 08:21 68 15 158/89 96 12/13/17 08:11 73 25 H 153/87 89 12/13/17 08:00 98.4 F 67 67 32 H 153/87 94 12/13/17 07:51 64 24 149/88 95 12/13/17 07:41 70 12 145/84 94 12/13/17 07:30 68 16 145/84 94 12/13/17 07:21 72 18 144/83 94 12/13/17 07:10 66 12 141/97 96 12/13/17 07:00 68 28 H 143/102 92 12/13/17 06:50 59 L 32 H 143/102 94 12/13/17 06:40 78 34 H 141/89 95 12/13/17 06:30 73 25 H 150/83 96 12/13/17 06:20 74 18 150/83 96 12/13/17 06:10 65 25 H 155/96 89 12/13/17 06:00 73 87 29 H 155/92 91 12/13/17 05:50 72 25 H 155/92 91 12/13/17 05:40 70 25 H 141/87 93 12/13/17 05:30 65 16 141/87 94 12/13/17 05:20 66 25 H 144/87 97 12/13/17 05:10 74 21 132/87 97 12/13/17 05:00 69 31 H 140/95 91 07/22/18 04:50 71 28 H 140/95 93 07/22/18 04:40 62 21 127/88 94 07/22/18 04:30 74 23 127/88 92 07/22/18 04:20 75 27 H 127/88 91 07/22/18 04:10 68 27 H 137/89 91 07/22/18 04:00 98.8 F 64 72 20 141/83 91 07/22/18 03:57 71 34 H 141/83 92 07/22/18 03:50 64 32 H 141/83 92 07/22/18 03:40 67 31 H 151/90 92 07/22/18 03:30 67 32 H 154/93 92 07/22/18 03:20 72 30 H 154/93 94 07/22/18 03:10 65 24 146/95 93 07/22/18 03:00 69 22 141/91 94 07/22/18 02:50 63 25 H 141/91 92 07/22/18 02:40 70 34 H 140/85 92 07/22/18 02:30 61 30 H 146/89 92 07/22/18 02:20 64 31 H 139/86 87 07/22/18 02:10 64 128/85 89 07/22/18 02:00 65 78 24 140/85 86 07/22/18 01:50 63 138/93 85 07/22/18 01:40 76 128/85 84 07/22/18 01:30 56 L 119/90 90 07/22/18 01:20 69 119/90 93 07/22/18 01:10 62 134/71 92 07/22/18 01:00 62 121/75 97 07/22/18 00:50 68 121/75 98 07/22/18 00:40 65 32 H 134/71 96 07/22/18 00:30 66 27 H 134/71 96 07/22/18 00:21 68 18 127/67 97 07/22/18 00:11 76 14 119/75 92 07/22/18 00:00 97.8 F 68 78 26 H 119/75 96 07/21/18 23:51 70 14 133/98 95 07/21/18 23:48 78 20 128/82 96 07/21/18 23:41 81 33 H 96 07/21/18 23:30 84 16 152/84 98 07/21/18 23:20 76 37 H 152/84 91 07/21/18 23:10 76 39 H 154/88 90 07/21/18 23:00 70 35 H 137/87 90 07/21/18 22:50 76 33 H 137/87 90 07/21/18 22:46 77 32 H 137/87 90 07/21/18 22:40 75 33 H 139/90 89 07/21/18 22:30 79 34 H 168/106 91 07/21/18 22:20 83 28 H 168/106 92 07/21/18 22:10 72 36 H 150/104 93 07/21/18 22:00 72 89 29 H 163/107 97 07/21/18 21:50 73 28 H 163/107 92 07/21/18 21:40 83 33 H 159/109 93 07/21/18 21:30 85 30 H 159/109 94 07/21/18 21:20 76 29 H 156/97 91 07/21/18 21:10 71 31 H 143/107 90 07/21/18 21:00 81 30 H 164/101 95 07/21/18 20:50 74 33 H 164/101 90 07/21/18 20:40 72 32 H 157/104 91 07/21/18 20:30 87 31 H 157/104 95 07/21/18 20:25 83 31 H 164/93 93 07/21/18 20:24 93 07/21/18 20:20 82 30 H 154/104 93 07/21/18 20:10 81 30 H 168/90 93 07/21/18 20:00 98.2 F 76 87 29 H 154/104 97 07/21/18 19:50 79 29 H 154/104 96 07/21/18 19:40 80 24 154/111 95 07/21/18 19:30 83 36 H 154/111 94 07/21/18 19:20 78 30 H 164/90 95 07/21/18 19:10 71 26 H 164/90 94 07/21/18 19:00 68 27 H 153/96 91 07/21/18 18:50 78 28 H 153/99 97 07/21/18 18:48 78 162/111 07/21/18 18:40 74 33 H 162/111 96 07/21/18 18:30 71 36 H 162/111 96 12/12/17 18:20 83 35 H 156/115 92 12/12/17 18:15 74 29 H 164/90 95 12/12/17 18:10 68 31 H 151/115 93 12/12/17 18:00 97 H 87 39 H 151/115 93 12/12/17 17:50 69 36 H 158/98 92 12/12/17 17:40 77 32 H 154/98 97 12/12/17 17:30 77 34 H 154/98 98 12/12/17 17:20 87 31 H 150/101 95 12/12/17 17:10 86 25 H 140/101 95 12/12/17 17:00 87 29 H 140/101 97 12/12/17 16:50 79 40 H 133/102 96 12/12/17 16:40 65 29 H 145/103 94 12/12/17 16:30 79 35 H 145/103 94 12/12/17 16:20 77 38 H 136/94 97 12/12/17 16:10 76 42 H 146/87 96 12/12/17 16:00 98.1 F 79 79 36 H 146/87 91 12/12/17 15:50 87 21 137/102 95 12/12/17 15:40 83 21 128/93 95 12/12/17 15:30 66 31 H 138/88 95 12/12/17 15:20 86 34 H 138/88 94 12/12/17 15:10 76 28 H 146/110 93 12/12/17 15:00 76 32 H 140/92 95 12/12/17 14:50 80 41 H 140/92 96 12/12/17 14:40 68 29 H 128/91 89 - Physical Examination General: Appears Well, Other (Morbidly obese.) Neck: Positive: neck supple, trachea midline. Negative: JVD/HJR Abdomen: Positive: Other (morbidly obese. cannot feel any organs or hear any bruit.) Extremities: Present: normal - Labs and Meds CBC 12/13/17 Range/Units 05:09 WBC 10.1 (4.5-11.0) K/mm3 RBC 5.05 H (3.65-5.03) M/mm3 Hgb 13.3 (11.8-15.2) gm/dl Hct 40.7 (35.5-45.6) % Plt Count 212 (140-440) K/mm3 Lymph # 1.5 (1.2-5.4) K/mm3 [place] # 0.9 H (0.0-0.8) K/mm3 Eos # 0.3 (0.0-0.4) K/mm3 Baso # 0.1 (0.0-0.1) K/mm3 Comprehensive Metabolic Panel 12/13/17 Range/Units 05:09 Sodium 141 (137-145) mmol/L Potassium 3.6 (3.6-5.0) mmol/L Chloride 97.6 L (98-107) mmol/L Carbon Dioxide 31 H (22-30) mmol/L BUN 18 (9-20) mg/dL Creatinine 1.1 (0.8-1.5) mg/dL Glucose 121 H (75-100) mg/dL Calcium 8.6 (8.4-10.2) mg/dL - Imaging and Cardiology EKG: report reviewed
[2017-12-13 16:25] LABS: Chol/HDL Ratio 5.17 %
[2017-12-14] MEDS: LASIX IV SCH ×2 (05:36→17:55)
[2017-12-14] MEDS: CATAPRES PO SCH ×3 (05:36→21:50)
[2017-12-14 08:02] LABS: Hematocrit 40.2 % (35.5-45.6); Mean Corpuscular HGB Conc 32 % (32-34); Mean Corpuscular Hemoglobin 26 pg (28-32); Mean Corpuscular Volume 81 fl (84-94); Platelet Count 198 K/mm3 (140-440); Red Blood Count 4.97 M/mm3 (3.65-5.03); Red Cell Distribution Width 17.3 % (13.2-15.2)
[2017-12-14 08:20] LABS: BUN/Creatinine Ratio 20; Blood Urea Nitrogen 22 mg/dL (9-20); Calcium 8.5 mg/dL (8.4-10.2); Hemolysis Index 17
--- NOTE | 2017-12-14 08:41 | Progress Note ---
Assessment and Plan Assessment and plan: Atrial fibrillation with rapid ventricular response. Admitted to ICU Off Cardizem drip, He is now rate controlled Cardiology following Hypertensive emergency. BP improved on Clonidine, Metoprolol, Norvasc Chronic dissection aortic aneurysm Consulted vasc surg and he was evaluated. They recommend conservative management. No indication for urgent surgery Chest pain. Cardiology following. Acute respiratory failure due to CHF exacerbation,rapid afib. Supplemental Oxygen. Pulm following Acute on chronic systolic CHF. He has been out of meds for more than 1 yr. Continue Lasix, Metoprolol, Strict fluid I/O Echo: EF 35-40% on Echo done 12/12/17 Borderline diabetes. A1C 6.3 Fingerstick qac and hs Medical non compliance because he has no insurance and no money to buy meds or follow up with Doctors. Consulted case management Full code status Hopefully transfer out of ICU today. History Interval history: less shortness of breath, No chest pain Hospitalist Physical - Physical exam Narrative exam: Constitutional; Not in acute distress,morbidly obese HEENT: Atraumatic, normocephalic Neck: supple, no lymphadenopathy, JVD or thyromegaly Lungs: Clear to auscultation, bilaterally, no wheeze, no crackles CVS; S1-S2 irregular, irregular, no murmurs, rubs or gallop, Abdomen; soft, non-tender, non distended,bowel sounds are normal, Musculoskeletal; Bilateral pitting lower ext edema, BLASTING ENTRY SPECIALIST: awake, alert,oriented x3, no focal neurological signs Psych:normal mood - Constitutional Vitals: Temp Pulse Resp BP Pulse Ox 98.9 F 69 20 145/90 96 12/14/17 03:48 12/14/17 08:00 12/14/17 08:00 12/14/17 07:45 12/14/17 08:00 General appearance: Present: no acute distress Results - Labs CBC & Chem 7: 12/14/17 07:47 12/14/17 07:47 Labs: Laboratory Last Values WBC 10.1 K/mm3 (4.5-11.0) 12/14/17 07:47 RBC 4.97 M/mm3 (3.65-5.03) 12/14/17 07:47 Hgb 13.0 gm/dl (11.8-15.2) 12/14/17 07:47 Hct 40.2 % (35.5-45.6) 12/14/17 07:47 MCV 81 fl (84-94) L 12/14/17 07:47 MCH 26 pg (28-32) L 12/14/17 07:47 MCHC 32 % (32-34) 12/14/17 07:47 RDW 17.3 % (13.2-15.2) H 12/14/17 07:47 Plt Count 198 K/mm3 (140-440) 12/14/17 07:47 Lymph % (Auto) 15.1 % (13.4-35.0) 12/13/17 05:09 [place] % (Auto) 9.3 % (0.0-7.3) H 12/13/17 05:09 Eos % (Auto) 2.9 % (0.0-4.3) 12/13/17 05:09 Baso % (Auto) 0.8 % (0.0-1.8) 12/13/17 05:09 Lymph # 1.5 K/mm3 (1.2-5.4) 12/13/17 05:09 [place] # 0.9 K/mm3 (0.0-0.8) H 12/13/17 05:09 Eos # 0.3 K/mm3 (0.0-0.4) 12/13/17 05:09 Baso # 0.1 K/mm3 (0.0-0.1) 12/13/17 05:09 Seg Neutrophils % 71.9 % (40.0-70.0) H 12/13/17 05:09 Seg Neutrophils # 7.3 K/mm3 (1.8-7.7) 12/13/17 05:09 PT 14.3 Sec. (12.2-14.9) 12/12/17 03:52 INR 1.05 (0.87-1.13) 12/12/17 03:52 D-Dimer 1391.51 ng/mlDDU (0-234) H 12/12/17 03:52 Sodium 141 mmol/L (137-145) 12/14/17 07:47 Potassium 3.5 mmol/L (3.6-5.0) L 12/14/17 07:47 Chloride 98.1 mmol/L (98-107) 12/14/17 07:47 Carbon Dioxide 33 mmol/L (22-30) H 12/14/17 07:47 Anion Gap 13 mmol/L 12/14/17 07:47 BUN 22 mg/dL (9-20) H 12/14/17 07:47 Creatinine 1.1 mg/dL (0.8-1.5) 12/14/17 07:47 Estimated GFR > 60 ml/min 12/14/17 07:47 BUN/Creatinine Ratio 20 % 12/14/17 07:47 Glucose 117 mg/dL (75-100) H 12/14/17 07:47 POC Glucose 113 (70-105) H 12/13/17 22:02 Hemoglobin A1c 6.3 % (4-6) H 12/12/17 12:05 Lactic Acid 1.20 mmol/L (0.7-2.0) 12/12/17 03:52 Calcium 8.5 mg/dL (8.4-10.2) 12/14/17 07:47 Phosphorus 4.70 mg/dL (2.5-4.5) H 12/12/17 06:41 Magnesium 2.00 mg/dL (1.7-2.3) 12/12/17 06:41 Total Bilirubin 0.30 mg/dL (0.1-1.2) 12/12/17 03:52 AST 41 units/L (5-40) H 12/12/17 03:52 ALT 61 units/L (7-56) H 12/12/17 03:52 Alkaline Phosphatase 92 units/L (35-129) 12/12/17 03:52 Troponin T 0.032 ng/mL (0.00-0.029) H D 12/13/17 15:38 NT-Pro-B Natriuret Pep 7260 pg/mL (0-450) H 12/12/17 03:52 Total Protein 5.9 g/dL (6.3-8.2) L 12/12/17 03:52 Albumin 3.3 g/dL (3.9-5) L 12/12/17 03:52 Albumin/Globulin Ratio 1.3 % 12/12/17 03:52 Triglycerides 86 mg/dL (2-149) 12/13/17 15:38 Cholesterol 150 mg/dL (50-199) 12/13/17 15:38 LDL Cholesterol Direct 109 mg/dL (50-130) 12/13/17 15:38 HDL Cholesterol 29 mg/dL (40-59) L 12/13/17 15:38 Cholesterol/HDL Ratio 5.17 % 12/13/17 15:38
--- NOTE | 2017-12-14 09:25 | Progress Note ---
Assessment and Plan Acute respiratory failure, secondary to hypertensive emergency. Controlled. Hypertensive emergency. Controlled Afib RVR . Improved. See cardiology and recommendations Chronic AA AAA. See cardiology note. Vacular following. Untreated sleep apnea. Apparently on empiric treatment at home. The patient reports that he had never been tested for sleep apnea and is using some borrowed CPAP to help with his breathing at nighttime Recommendations Okay to transfer from pulmonary standpoint Continue medications for hypertension management and rhythm control per cardiology recommendations He to be scheduled for sleep study once discharged from the hospital and in stable medical status. We will arrange for this to be follow-up the office once patient's release Critical care time was 31 minutes of [id number] evaluation and coordination of care Subjective Date of service: 12/14/17 Interval history: Patient reports no respiratory complaints. He slept pretty well on BiPAP last evening. No chest pain. Pending transfer outside the unit today Objective Vital Signs - 12hr 12/13/17 12/13/17 12/13/17 21:30 21:41 21:51 Temperature Pulse Rate 64 65 66 Pulse Rate [ From Monitor] Respiratory 28 H 10 L 18 Rate Blood Pressure 135/84 152/82 131/84 O2 Sat by Pulse 96 96 95 Oximetry 12/13/17 12/13/17 12/13/17 21:52 22:00 22:11 Temperature Pulse Rate 66 64 62 Pulse Rate [ From Monitor] Respiratory 26 H 20 Rate Blood Pressure 131/84 140/83 140/83 O2 Sat by Pulse 96 95 Oximetry 12/13/17 12/13/17 12/13/17 22:18 22:21 22:30 Temperature Pulse Rate 60 62 55 L Pulse Rate [ From Monitor] Respiratory 24 10 L 28 H Rate Blood Pressure 135/79 135/79 130/80 O2 Sat by Pulse 98 98 95 Oximetry 12/13/17 12/13/17 12/13/17 22:41 22:51 22:54 Temperature Pulse Rate 55 L 59 L 58 L Pulse Rate [ From Monitor] Respiratory 25 H 29 H Rate Blood Pressure 135/79 125/79 O2 Sat by Pulse 95 92 Oximetry 12/13/17 12/13/17 12/13/17 23:00 23:04 23:15 Temperature Pulse Rate 57 L 55 L 57 L Pulse Rate [ From Monitor] Respiratory 31 H 27 H 28 H Rate Blood Pressure 125/79 135/79 132/80 O2 Sat by Pulse 93 90 91 Oximetry 12/13/17 12/13/17 12/13/17 23:30 23:45 23:56 Temperature 97.4 F L Pulse Rate 55 L 55 L Pulse Rate [ From Monitor] Respiratory 26 H 26 H Rate Blood Pressure 134/84 134/89 O2 Sat by Pulse 92 94 Oximetry 12/14/17 12/14/17 12/14/17 00:00 00:15 00:30 Temperature Pulse Rate 56 L 56 L 59 L Pulse Rate [ 55 L From Monitor] Respiratory 29 H 26 H 23 Rate Blood Pressure 137/85 129/82 127/87 O2 Sat by Pulse 91 93 90 Oximetry 12/14/17 12/14/17 12/14/17 00:45 01:00 01:15 Temperature Pulse Rate 52 L 54 L 57 L Pulse Rate [ From Monitor] Respiratory 17 26 H 24 Rate Blood Pressure 119/86 131/86 142/92 O2 Sat by Pulse 96 96 96 Oximetry 12/14/17 12/14/17 12/14/17 01:30 01:45 02:00 Temperature Pulse Rate 54 L 54 L 57 L Pulse Rate [ From Monitor] Respiratory 21 27 H 21 Rate Blood Pressure 140/86 136/86 148/89 O2 Sat by Pulse 95 95 95 Oximetry 12/14/17 12/14/17 12/14/17 02:15 02:30 02:45 Temperature Pulse Rate 53 L 55 L 53 L Pulse Rate [ From Monitor] Respiratory 26 H 26 H 21 Rate Blood Pressure 141/87 139/94 146/83 O2 Sat by Pulse 96 98 97 Oximetry 12/14/17 12/14/17 12/14/17 03:00 03:15 03:30 Temperature Pulse Rate 57 L 55 L 60 Pulse Rate [ From Monitor] Respiratory 26 H 15 21 Rate Blood Pressure 146/83 136/85 131/82 O2 Sat by Pulse 96 95 96 Oximetry 12/14/17 12/14/17 12/14/17 03:45 03:48 04:00 Temperature 98.9 F Pulse Rate 55 L Pulse Rate [ 65 From Monitor] Respiratory 10 L 23 Rate Blood Pressure 121/82 O2 Sat by Pulse 98 96 Oximetry 12/14/17 12/14/17 12/14/17 04:01 04:15 04:30 Temperature Pulse Rate 61 58 L 58 L Pulse Rate [ From Monitor] Respiratory 22 22 24 Rate Blood Pressure 146/91 148/99 157/95 O2 Sat by Pulse 97 97 95 Oximetry 12/14/17 12/14/17 12/14/17 04:45 05:00 05:16 Temperature Pulse Rate 67 59 L 67 Pulse Rate [ From Monitor] Respiratory 24 24 26 H Rate Blood Pressure 158/97 152/98 O2 Sat by Pulse 94 92 95 Oximetry 12/14/17 12/14/17 12/14/17 05:30 05:36 05:45 Temperature Pulse Rate 58 L 58 L 67 Pulse Rate [ From Monitor] Respiratory 18 31 H Rate Blood Pressure 158/92 158/92 150/99 O2 Sat by Pulse 97 99 Oximetry 12/14/17 12/14/17 12/14/17 06:00 06:15 06:31 Temperature Pulse Rate 61 62 68 Pulse Rate [ 67 From Monitor] Respiratory 20 17 23 Rate Blood Pressure 154/87 154/87 142/98 O2 Sat by Pulse 96 96 97 Oximetry 12/14/17 12/14/17 12/14/17 06:45 07:00 07:15 Temperature Pulse Rate 64 64 65 Pulse Rate [ From Monitor] Respiratory 17 19 17 Rate Blood Pressure 153/90 148/110 148/110 O2 Sat by Pulse 97 95 97 Oximetry 12/14/17 12/14/17 12/14/17 07:30 07:45 08:00 Temperature 98.3 F Pulse Rate 65 64 Pulse Rate [ 69 From Monitor] Respiratory 28 H 14 20 Rate Blood Pressure 144/94 145/90 O2 Sat by Pulse 97 98 96 Oximetry Constitutional: no acute distress, alert, other (morbidly obese) Eyes: non-icteric ENT: oropharynx moist Neck: supple, no JVD Effort: mildly labored Ascultation: Bilateral: clear, diminished breath sounds Percussion: Bilateral: not dull Tactile fremitus: Bilateral: normal Cardiovascular: irregular rhythm (but currently rate controlled) Gastrointestinal: normoactive bowel sounds, soft, other (obese) Extremities: no cyanosis, edema Neurologic: normal mental status, non-focal exam Psychiatric: mood appropriate, affect normal CBC and BMP: 12/14/17 07:47 12/14/17 07:47 ABG, PT/INR, D-dimer: PT/INR, D-dimer PT 14.3 Sec. (12.2-14.9) 12/12/17 03:52 INR 1.05 (0.87-1.13) 12/12/17 03:52 D-Dimer 1391.51 ng/mlDDU (0-234) H 12/12/17 03:52 Abnormal lab findings: Abnormal Labs 12/12/17 12/12/17 12/12/17 03:49 03:52 03:52 RBC 5.18 H MCV 81 L MCH 26 L RDW 17.5 H [place] % (Auto) 7.7 H [place] # Seg Neutrophils % 74.0 H Seg Neutrophils # 7.9 H D-Dimer 1391.51 H Potassium 3.3 L Chloride 97.1 L Carbon Dioxide BUN Glucose 150 H POC Glucose Hemoglobin A1c Phosphorus AST 41 H ALT 61 H Troponin T NT-Pro-B Natriuret Pep 7260 H Total Protein 5.9 L Albumin 3.3 L HDL Cholesterol 12/12/17 12/12/17 12/12/17 06:41 11:32 12:05 RBC MCV MCH RDW [place] % (Auto) [place] # Seg Neutrophils % Seg Neutrophils # D-Dimer Potassium Chloride Carbon Dioxide BUN Glucose POC Glucose 124 H Hemoglobin A1c 6.3 H Phosphorus 4.70 H AST ALT Troponin T NT-Pro-B Natriuret Pep Total Protein Albumin HDL Cholesterol 12/12/17 12/13/17 12/13/17 18:39 05:09 05:09 RBC 5.05 H MCV 81 L MCH 26 L RDW 17.7 H [place] % (Auto) 9.3 H [place] # 0.9 H Seg Neutrophils % 71.9 H Seg Neutrophils # D-Dimer Potassium Chloride 97.6 L Carbon Dioxide 31 H BUN Glucose 121 H POC Glucose 118 H Hemoglobin A1c Phosphorus AST ALT Troponin T NT-Pro-B Natriuret Pep Total Protein Albumin HDL Cholesterol 12/13/17 12/13/17 12/13/17 07:48 11:39 15:38 RBC MCV MCH RDW [place] % (Auto) [place] # Seg Neutrophils % Seg Neutrophils # D-Dimer Potassium Chloride Carbon Dioxide BUN Glucose POC Glucose 123 H 114 H Hemoglobin A1c Phosphorus AST ALT Troponin T 0.032 H D NT-Pro-B Natriuret Pep Total Protein Albumin HDL Cholesterol 29 L 12/13/17 12/14/17 12/14/17 22:02 07:47 07:47 RBC MCV 81 L MCH 26 L RDW 17.3 H [place] % (Auto) [place] # Seg Neutrophils % Seg Neutrophils # D-Dimer Potassium 3.5 L Chloride Carbon Dioxide 33 H BUN 22 H Glucose 117 H POC Glucose 113 H Hemoglobin A1c Phosphorus AST ALT Troponin T NT-Pro-B Natriuret Pep Total Protein Albumin HDL Cholesterol
[2017-12-14] MEDS: NORVASC PO SCH (09:27)
[2017-12-14] MEDS: LOPRESSOR PO SCH ×3 (09:27→21:51)
[2017-12-14] MEDS: PEPCID IV SCH (09:28)
[2017-12-14] MEDS: K-DUR PO SCH ×2 (09:28→21:51)
[2017-12-14] MEDS: SODIUM CHLORIDE FLUSH SYRINGE 10 ML IV SCH ×2 (09:29→21:52)
[2017-12-14] MEDS: PEPCID PO SCH ×2 (11:13→21:51)
--- NOTE | 2017-12-14 13:05 | Progress Note ---
Assessment and Plan Patient will need aggressive blood pressure control. 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 From a vascular standpoint, the patient is okay to anticoagulate given his cardiac issues. Subjective Date of service: 12/14/17 Principal diagnosis: hypertension, chronic dissection Interval history: Patient with a history of hypertension that is only intermittently controlled. Imaging of his chest abdomen and pelvis demonstrates chronic appearing thoracoabdominal aneurysm with dissection. Objective - Constitutional Vitals: Vital Signs - 12hr 12/14/17 12/14/17 12/14/17 01:15 01:30 01:45 Temperature Pulse Rate 57 L 54 L 54 L Pulse Rate [ From Monitor] Respiratory 24 21 27 H Rate Blood Pressure 142/92 140/86 136/86 O2 Sat by Pulse 96 95 95 Oximetry 12/14/17 12/14/17 12/14/17 02:00 02:15 02:30 Temperature Pulse Rate 57 L 53 L 55 L Pulse Rate [ From Monitor] Respiratory 21 26 H 26 H Rate Blood Pressure 148/89 141/87 139/94 O2 Sat by Pulse 95 96 98 Oximetry 12/14/17 12/14/17 12/14/17 02:45 03:00 03:15 Temperature Pulse Rate 53 L 57 L 55 L Pulse Rate [ From Monitor] Respiratory 21 26 H 15 Rate Blood Pressure 146/83 146/83 136/85 O2 Sat by Pulse 97 96 95 Oximetry 12/14/17 12/14/17 12/14/17 03:30 03:45 03:48 Temperature 98.9 F Pulse Rate 60 55 L Pulse Rate [ From Monitor] Respiratory 21 10 L Rate Blood Pressure 131/82 121/82 O2 Sat by Pulse 96 98 Oximetry 12/14/17 12/14/17 12/14/17 04:00 04:01 04:15 Temperature Pulse Rate 61 58 L Pulse Rate [ 65 From Monitor] Respiratory 23 22 22 Rate Blood Pressure 146/91 148/99 O2 Sat by Pulse 96 97 97 Oximetry 12/14/17 12/14/17 12/14/17 04:30 04:45 05:00 Temperature Pulse Rate 58 L 67 59 L Pulse Rate [ From Monitor] Respiratory 24 24 24 Rate Blood Pressure 157/95 158/97 152/98 O2 Sat by Pulse 95 94 92 Oximetry 12/14/17 12/14/17 12/14/17 05:16 05:30 05:36 Temperature Pulse Rate 67 58 L 58 L Pulse Rate [ From Monitor] Respiratory 26 H 18 Rate Blood Pressure 158/92 158/92 O2 Sat by Pulse 95 97 Oximetry 12/14/17 12/14/17 12/14/17 05:45 06:00 06:15 Temperature Pulse Rate 67 61 62 Pulse Rate [ 67 From Monitor] Respiratory 31 H 20 17 Rate Blood Pressure 150/99 154/87 154/87 O2 Sat by Pulse 99 96 96 Oximetry 12/14/17 12/14/17 12/14/17 06:31 06:45 07:00 Temperature Pulse Rate 68 64 64 Pulse Rate [ From Monitor] Respiratory 23 17 19 Rate Blood Pressure 142/98 153/90 148/110 O2 Sat by Pulse 97 97 95 Oximetry 12/14/17 12/14/17 12/14/17 07:15 07:30 07:45 Temperature Pulse Rate 65 65 64 Pulse Rate [ From Monitor] Respiratory 17 28 H 14 Rate Blood Pressure 148/110 144/94 145/90 O2 Sat by Pulse 97 97 98 Oximetry 12/14/17 12/14/17 12/14/17 08:00 08:15 08:31 Temperature 98.3 F Pulse Rate 66 69 74 Pulse Rate [ 69 From Monitor] Respiratory 31 H 22 23 Rate Blood Pressure 145/88 139/90 145/107 O2 Sat by Pulse 96 98 95 Oximetry 12/14/17 12/14/17 12/14/17 08:45 09:00 09:15 Temperature Pulse Rate 68 62 68 Pulse Rate [ From Monitor] Respiratory 27 H 33 H 27 H Rate Blood Pressure 131/81 138/75 138/75 O2 Sat by Pulse 96 96 91 Oximetry 12/14/17 12/14/17 12/14/17 09:27 09:31 09:45 Temperature Pulse Rate 72 67 65 Pulse Rate [ From Monitor] Respiratory 23 23 Rate Blood Pressure 159/108 152/80 155/86 O2 Sat by Pulse 98 95 Oximetry 12/14/17 12/14/17 12/14/17 10:00 10:15 10:31 Temperature Pulse Rate 71 71 59 L Pulse Rate [ From Monitor] Respiratory 14 22 25 H Rate Blood Pressure 147/93 155/86 149/94 O2 Sat by Pulse 96 96 97 Oximetry 12/14/17 12/14/17 12/14/17 10:45 11:00 12:00 Temperature 98.4 F Pulse Rate 73 74 Pulse Rate [ From Monitor] Respiratory 28 H 22 Rate Blood Pressure 149/94 147/90 O2 Sat by Pulse 93 95 Oximetry General appearance: Present: no acute distress, obese - EENT Eyes: PERRL, EOM intact ENT: hearing intact - Neck Neck: supple, normal ROM - Respiratory Respiratory effort: normal - Breasts Breasts: deferred Extremities: no ischemia Extremity abnormal: edema - Gastrointestinal General gastrointestinal: Present: deferred Rectal Exam: deferred - Genitourinary Male genitourinary: deferred - Psychiatric Psychiatric: appropriate mood/affect, cooperative - Labs CBC & Chem 7: 12/14/17 07:47 12/14/17 07:47 Labs: Abnormal lab results 12/13/17 12/13/17 12/14/17 Range/Units 15:38 22:02 07:47 MCV 81 L (84-94) fl MCH 26 L (28-32) pg RDW 17.3 H (13.2-15.2) % Potassium (3.6-5.0) mmol/L Carbon Dioxide (22-30) mmol/L BUN (9-20) mg/dL Glucose (75-100) mg/dL POC Glucose 113 H (70-105) Troponin T 0.032 H D (0.00-0.029) ng/mL HDL Cholesterol 29 L (40-59) mg/dL 12/14/17 Range/Units 07:47 MCV (84-94) fl MCH (28-32) pg RDW (13.2-15.2) % Potassium 3.5 L (3.6-5.0) mmol/L Carbon Dioxide 33 H (22-30) mmol/L BUN 22 H (9-20) mg/dL Glucose 117 H (75-100) mg/dL POC Glucose (70-105) Troponin T (0.00-0.029) ng/mL HDL Cholesterol (40-59) mg/dL
[2017-12-14] MEDS: LOVENOX SUB-Q SCH ×2 (14:00→21:52)
--- NOTE | 2017-12-14 14:01 | Progress Note ---
Assessment and Plan Assessment: Atrial fibrillation with rapid ventricular response --> SR Hypertensive emergency - improving; weaned off cardene and cardizem gtts Chronic dissection aortic aneurysm AAA Acute respiratory failure Acute on chronic combined systolic and diastolic heart failure Morbid obesity H/o medical noncompliance Suspected LOPEZ Plan: Currently stable cardiac status. Pt has converted to NSR. Optimize anti-hypertensive regimen - increase lopressor. Per vascular surgery, the patient is okay to anticoagulate given his cardiac issues. 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 Coumadin initiated per primary. Cont full dosage lovenox BID until target INR of 2-3 is achieved. Pt may tx out of ICU to telemetry from cardiology standpoint. Assessment and plan reviewed with pt at bedside. The patient has been seen in conjunction with Dr. Milian who agrees with the assessment and plan of care. Subjective Date of service: 12/14/17 Principal diagnosis: afib; HTN; AAA Interval history: pt resting comfortably in bed, no current cardiac complaints. tele reviewed - pt converted to NSR overnight. BPs improving. weaned off cardizem and cardene gtts. Objective Last Vital Signs Temp 98.4 F 12/14/17 12:00 Pulse 75 12/14/17 13:59 Resp 22 12/14/17 11:00 BP 143/102 12/14/17 13:59 Pulse Ox 95 12/14/17 11:00 - Physical Examination General: Appears Well, Other (Morbidly obese.) Neck: Positive: neck supple, trachea midline. Negative: JVD/HJR Cardiac: Positive: Reg Rate and Rhythm, S1/S2 Lungs: Positive: clear to auscultation Neuro: Positive: Grossly Intact Abdomen: Positive: Other (morbidly obese. cannot feel any organs or hear any bruit.) Extremities: Present: normal - Labs and Meds Lipids 12/13/17 Range/Units 15:38 Triglycerides 86 (2-149) mg/dL Cholesterol 150 (50-199) mg/dL HDL Cholesterol 29 L (40-59) mg/dL Cholesterol/HDL Ratio 5.17 % CBC 12/14/17 Range/Units 07:47 WBC 10.1 (4.5-11.0) K/mm3 RBC 4.97 (3.65-5.03) M/mm3 Hgb 13.0 (11.8-15.2) gm/dl Hct 40.2 (35.5-45.6) % Plt Count 198 (140-440) K/mm3 Comprehensive Metabolic Panel 12/14/17 Range/Units 07:47 Sodium 141 (137-145) mmol/L Potassium 3.5 L (3.6-5.0) mmol/L Chloride 98.1 (98-107) mmol/L Carbon Dioxide 33 H (22-30) mmol/L BUN 22 H (9-20) mg/dL Creatinine 1.1 (0.8-1.5) mg/dL Glucose 117 H (75-100) mg/dL Calcium 8.5 (8.4-10.2) mg/dL - Imaging and Cardiology EKG: report reviewed Echo: report reviewed (EF 35-40%, mod LVH, abnormal diastolic function, LA mod to severely dilated, RVSP 20-25mmHg, mild dilatation of the aortic root. ) - Telemetry EKG Rhythm: Sinus Rhythm
[2017-12-14] MEDS ORDERED: LOPRESSOR PO SCH (14:07)
[2017-12-14] MEDS: COUMADIN PO SCH (17:52)
[2017-12-15] MEDS: LASIX IV SCH ×2 (05:06→18:09)
[2017-12-15] MEDS: CATAPRES PO SCH ×2 (05:07→23:01)
[2017-12-15 06:41] LABS: Hematocrit 41.6 % (35.5-45.6); Hemoglobin 13.4 gm/dl (11.8-15.2); Mean Corpuscular HGB Conc 32 % (32-34); Mean Corpuscular Hemoglobin 26 pg (28-32); Mean Corpuscular Volume 81 fl (84-94); Platelet Count 215 K/mm3 (140-440); Red Blood Count 5.12 M/mm3 (3.65-5.03); Red Cell Distribution Width 17.4 % (13.2-15.2)
[2017-12-15 06:50] LABS: INR 1.05 (0.87-1.13)
[2017-12-15 07:02] LABS: BUN/Creatinine Ratio 19; Blood Urea Nitrogen 23 mg/dL (9-20); Hemolysis Index 3
[2017-12-15] MEDS: LOPRESSOR PO SCH ×2 (11:05→23:01)
[2017-12-15] MEDS: NORVASC PO SCH (11:05)
[2017-12-15] MEDS: PEPCID PO SCH ×2 (11:05→23:00)
[2017-12-15] MEDS: SODIUM CHLORIDE FLUSH SYRINGE 10 ML IV SCH ×2 (11:08→23:00)
[2017-12-15] MEDS: LOVENOX SUB-Q SCH ×2 (11:56→22:59)
--- NOTE | 2017-12-15 12:04 | Progress Note ---
Assessment and Plan Assessment: Atrial fibrillation with rapid ventricular response --> SR Hypertensive emergency - improving Chronic dissection aortic aneurysm AAA Acute respiratory failure Acute on chronic combined systolic and diastolic heart failure - improving Morbid obesity H/o medical noncompliance Suspected LOPEZ Plan: BPs improving. Would prefer to wean pt off clonidine - will decrease clonidine dosing to BID with end goal of only HS dosing at home. Cont Coumadin with lovenox "bridging". Cont diuresis and consider conversion from IV to PO lasix in AM. Assessment and plan reviewed with pt at bedside. The patient has been seen in conjunction with Dr. Milian who agrees with the assessment and plan of care. Subjective Date of service: 12/15/17 Principal diagnosis: afib; HTN; AAA Interval history: pt resting comfortably in bed, no current cardiac complaints. tele reviewed - pt remains in NSR. BPs improving. Objective Last Vital Signs Temp 97.9 F 12/14/17 23:34 Pulse 78 12/15/17 00:36 Resp 26 H 12/15/17 00:36 BP 144/67 12/14/17 23:34 Pulse Ox 96 12/15/17 09:25 - Physical Examination General: Appears Well, Other (Morbidly obese.) Neck: Positive: neck supple, trachea midline. Negative: JVD/HJR Cardiac: Positive: Reg Rate and Rhythm, S1/S2 Lungs: Positive: clear to auscultation Neuro: Positive: Grossly Intact Abdomen: Positive: Other (morbidly obese. cannot feel any organs or hear any bruit.) Extremities: Present: normal - Labs and Meds Coagulation 12/15/17 Range/Units Unknown PT 14.3 (12.2-14.9) Sec. INR 1.05 (0.87-1.13) CBC 12/15/17 Range/Units Unknown WBC 8.9 (4.5-11.0) K/mm3 RBC 5.12 H (3.65-5.03) M/mm3 Hgb 13.4 (11.8-15.2) gm/dl Hct 41.6 (35.5-45.6) % Plt Count 215 (140-440) K/mm3 Comprehensive Metabolic Panel 12/15/17 Range/Units Unknown Sodium 140 (137-145) mmol/L Potassium 3.9 (3.6-5.0) mmol/L Chloride 93.7 L (98-107) mmol/L Carbon Dioxide 35 H (22-30) mmol/L BUN 23 H (9-20) mg/dL Creatinine 1.2 (0.8-1.5) mg/dL Glucose 107 H (75-100) mg/dL Calcium 9.0 (8.4-10.2) mg/dL - Imaging and Cardiology EKG: report reviewed Echo: report reviewed (EF 35-40%, mod LVH, abnormal diastolic function, LA mod to severely dilated, RVSP 20-25mmHg, mild dilatation of the aortic root. ) - Telemetry EKG Rhythm: Sinus Rhythm
[2017-12-15] MEDS: APRESOLINE IV PRN (13:21)
--- NOTE | 2017-12-15 13:40 | Progress Note ---
Assessment and Plan /Atrial fibrillation with rapid ventricular response. Off Cardizem drip now, He is now rate controlled, Cardiology following on lovenox with bridging coumadin /Acute on chronic systolic CHF. He has been out of meds for more than 1 yr. Continue Lasix, Metoprolol, Strict fluid I/O Echo: EF 35-40% on Echo done 12/12/17 /Hypertensive emergency. BP improved on Clonidine, Metoprolol, Norvasc /Chronic dissection aortic aneurysm Consulted vasc surg and he was evaluated. They recommend conservative management. No indication for urgent surgery /Chest pain. Cardiology following. medical mx /Acute respiratory failure due to CHF exacerbation, rapid afib. Supplemental Oxygen. Pulm following /Borderline diabetes. A1C 6.3, Fingerstick qac and hs Medical non compliance because he has no insurance and no money to buy meds or follow up with Doctors. Consulted case management Full code status Disposition: when INR therapeutic Brief history: Patient is 42 yo with history of hypertension, CHF, aortic aneurysm with chronic dissection presented to ER with chest pain and shortness of breath for 2 days. He stated he has not taken any of his meds in more than 1 yr because he has no insurance, does not have a PCP and has no money. In ED, found to have rapid atrial fibrillation, CHF exacerbation, hypertensive emergency, admited to ICU with cardizem drip. Hospitalist Physical Constitutional; Not in acute distress,morbidly obese HEENT: Atraumatic, normocephalic Neck: supple, no lymphadenopathy, JVD or thyromegaly Lungs: Clear to auscultation, bilaterally, no wheeze, no crackles CVS; S1-S2 irregular, irregular, no murmurs, rubs or gallop, Abdomen; soft, non-tender, non distended,bowel sounds are normal, Musculoskeletal; Bilateral pitting lower ext edema, EMPLOYMENT INTERVIEWER: awake, alert,oriented x3, no focal neurological signs Psych:normal mood Subjective Date of service: 12/15/17 Principal diagnosis: afib; HTN; AAA Interval history: Pt seen and examined No acute event O/N Objective - Constitutional Vitals: Vital Signs - 12hr 12/15/17 09:25 O2 Sat by Pulse 96 Oximetry - Labs CBC & Chem 7: 12/15/17 Unknown 12/15/17 Unknown Labs: Abnormal lab results 12/14/17 12/15/1712/15/18 Range/Units 22:19 06:53 Unknown RBC 5.12 H (3.65-5.03) M/mm3 MCV 81 L (84-94) fl MCH 26 L (28-32) pg RDW 17.4 H (13.2-15.2) % Chloride (98-107) mmol/L Carbon Dioxide (22-30) mmol/L BUN (9-20) mg/dL Glucose (75-100) mg/dL POC Glucose 129 H 116 H (70-105) 12/15/17 Range/Units Unknown RBC (3.65-5.03) M/mm3 MCV (84-94) fl MCH (28-32) pg RDW (13.2-15.2) % Chloride 93.7 L (98-107) mmol/L Carbon Dioxide 35 H (22-30) mmol/L BUN 23 H (9-20) mg/dL Glucose 107 H (75-100) mg/dL POC Glucose (70-105)
--- NOTE | 2017-12-15 14:51 | Progress Note ---
Assessment and Plan Acute respiratory failure, secondary to hypertensive emergency. Controlled. Hypertensive emergency. Controlled Afib RVR . Improved. See cardiology and recommendations Chronic AA AAA. See cardiology note. Vascular following. Untreated sleep apnea. Apparently on empiric treatment at home. The patient reports that he had never been tested for sleep apnea and is using some borrowed CPAP to help with his breathing at nighttime Recommendations Continue BiPAP at nighttime Continue medications for hypertension management and rhythm control per cardiology recommendations Sleep study once discharged from the hospital and in stable medical status. We will arrange for this to be follow-up the office once patient's release Subjective Date of service: 12/15/17 Principal diagnosis: afib; HTN; AAA Interval history: Patient reports no respiratory complaints. States she had excellent sleep on BiPAP BiPAP last evening. No additional complaints Objective Vital Signs - 12hr 12/15/17 09:25 O2 Sat by Pulse 96 Oximetry Constitutional: no acute distress, alert, other (morbidly obese) Eyes: non-icteric ENT: oropharynx moist Neck: supple, no JVD Effort: mildly labored Ascultation: Bilateral: clear, diminished breath sounds, rales Percussion: Bilateral: not dull Tactile fremitus: Bilateral: normal Cardiovascular: irregular rhythm (but currently rate controlled) Gastrointestinal: normoactive bowel sounds, soft, other (obese) Extremities: no cyanosis, edema Neurologic: normal mental status, non-focal exam Psychiatric: mood appropriate, affect normal CBC and BMP: 12/15/17 Unknown 12/15/17 Unknown ABG, PT/INR, D-dimer: PT/INR, D-dimer PT 14.3 Sec. (12.2-14.9) 12/15/17 Unknown INR 1.05 (0.87-1.13) 12/15/17 Unknown D-Dimer 1391.51 ng/mlDDU (0-234) H 12/12/17 03:52 Abnormal lab findings: Abnormal Labs 12/12/17 12/12/17 12/12/17 03:49 03:52 03:52 RBC 5.18 H MCV 81 L MCH 26 L RDW 17.5 H [place] % (Auto) 7.7 H [place] # Seg Neutrophils % 74.0 H Seg Neutrophils # 7.9 H D-Dimer 1391.51 H Potassium 3.3 L Chloride 97.1 L Carbon Dioxide BUN Glucose 150 H POC Glucose Hemoglobin A1c Phosphorus AST 41 H ALT 61 H Troponin T NT-Pro-B Natriuret Pep 7260 H Total Protein 5.9 L Albumin 3.3 L HDL Cholesterol 12/12/17 12/12/17 12/12/17 06:41 11:32 12:05 RBC MCV MCH RDW [place] % (Auto) [place] # Seg Neutrophils % Seg Neutrophils # D-Dimer Potassium Chloride Carbon Dioxide BUN Glucose POC Glucose 124 H Hemoglobin A1c 6.3 H Phosphorus 4.70 H AST ALT Troponin T NT-Pro-B Natriuret Pep Total Protein Albumin HDL Cholesterol 12/12/17 12/13/17 12/13/17 18:39 05:09 05:09 RBC 5.05 H MCV 81 L MCH 26 L RDW 17.7 H [place] % (Auto) 9.3 H [place] # 0.9 H Seg Neutrophils % 71.9 H Seg Neutrophils # D-Dimer Potassium Chloride 97.6 L Carbon Dioxide 31 H BUN Glucose 121 H POC Glucose 118 H Hemoglobin A1c Phosphorus AST ALT Troponin T NT-Pro-B Natriuret Pep Total Protein Albumin HDL Cholesterol 12/13/17 12/13/17 12/13/17 07:48 11:39 15:38 RBC MCV MCH RDW [place] % (Auto) [place] # Seg Neutrophils % Seg Neutrophils # D-Dimer Potassium Chloride Carbon Dioxide BUN Glucose POC Glucose 123 H 114 H Hemoglobin A1c Phosphorus AST ALT Troponin T 0.032 H D NT-Pro-B Natriuret Pep Total Protein Albumin HDL Cholesterol 29 L 12/13/17 12/14/17 12/14/17 22:02 07:47 07:47 RBC MCV 81 L MCH 26 L RDW 17.3 H [place] % (Auto) [place] # Seg Neutrophils % Seg Neutrophils # D-Dimer Potassium 3.5 L Chloride Carbon Dioxide 33 H BUN 22 H Glucose 117 H POC Glucose 113 H Hemoglobin A1c Phosphorus AST ALT Troponin T NT-Pro-B Natriuret Pep Total Protein Albumin HDL Cholesterol 12/14/17 12/15/17 12/15/17 22:19 06:53 Unknown RBC 5.12 H MCV 81 L MCH 26 L RDW 17.4 H [place] % (Auto) [place] # Seg Neutrophils % Seg Neutrophils # D-Dimer Potassium Chloride Carbon Dioxide BUN Glucose POC Glucose 129 H 116 H Hemoglobin A1c Phosphorus AST ALT Troponin T NT-Pro-B Natriuret Pep Total Protein Albumin HDL Cholesterol 12/15/17 Unknown RBC MCV MCH RDW [place] % (Auto) [place] # Seg Neutrophils % Seg Neutrophils # D-Dimer Potassium Chloride 93.7 L Carbon Dioxide 35 H BUN 23 H Glucose 107 H POC Glucose Hemoglobin A1c Phosphorus AST ALT Troponin T NT-Pro-B Natriuret Pep Total Protein Albumin HDL Cholesterol
--- NOTE | 2017-12-15 17:35 | Progress Note ---
Assessment and Plan - Patient Problems (1) Aortic dissection, thoracoabdominal Current Visit: Yes Status: Chronic Plan to address problem: No intervention needed. Condition is chronic. Subjective Date of service: 12/15/17 Principal diagnosis: afib; HTN; AAA Interval history: no chest pain at the moment. patient has known about the dissection for 2 years. Objective - Constitutional Vitals: Vital Signs - 12hr 12/15/17 09:25 O2 Sat by Pulse 96 Oximetry General appearance: Present: no acute distress - Respiratory Respiratory effort: normal Extremities: no ischemia - Gastrointestinal General gastrointestinal: Present: soft - Labs CBC & Chem 7: 12/15/17 Unknown 12/15/17 Unknown Labs: Abnormal lab results 12/14/17 12/15/17 12/15/17 Range/Units 22:19 06:53 12:38 RBC (3.65-5.03) M/mm3 MCV (84-94) fl MCH (28-32) pg RDW (13.2-15.2) % Chloride (98-107) mmol/L Carbon Dioxide (22-30) mmol/L BUN (9-20) mg/dL Glucose (75-100) mg/dL POC Glucose 129 H 116 H 67 L (70-105) 12/15/17 12/15/17 12/15/17 Range/Units 13:32 Unknown Unknown RBC 5.12 H (3.65-5.03) M/mm3 MCV 81 L (84-94) fl MCH 26 L (28-32) pg RDW 17.4 H (13.2-15.2) % Chloride 93.7 L (98-107) mmol/L Carbon Dioxide 35 H (22-30) mmol/L BUN 23 H (9-20) mg/dL Glucose 107 H (75-100) mg/dL POC Glucose 135 H (70-105)
[2017-12-15] MEDS: COUMADIN PO SCH (18:08)
[2017-12-16 05:56] LABS: INR 1.09 (0.87-1.13)
[2017-12-16] MEDS: LASIX IV SCH (06:54)
[2017-12-16] MEDS: APRESOLINE IV PRN (07:01)
[2017-12-16] MEDS: NORVASC PO SCH (10:49)
[2017-12-16] MEDS: LOPRESSOR PO SCH ×2 (10:49→22:04)
[2017-12-16] MEDS: ZESTRIL PO SCH (10:49)
[2017-12-16] MEDS: CATAPRES PO SCH ×2 (10:50→22:03)
[2017-12-16] MEDS: SODIUM CHLORIDE FLUSH SYRINGE 10 ML IV SCH ×2 (10:50→22:03)
[2017-12-16] MEDS: PEPCID PO SCH ×2 (10:50→22:04)
[2017-12-16] MEDS: LOVENOX SUB-Q SCH ×2 (10:56→22:03)
--- NOTE | 2017-12-16 11:28 | Progress Note ---
Assessment and Plan Acute respiratory failure, secondary to hypertensive emergency. Controlled. Hypertensive emergency. Controlled Afib RVR . Controlled. Chronic AA AAA. See cardiology note. Vascular Untreated sleep apnea. Apparently on empiric treatment at home. The patient reports that he had never been tested for sleep apnea and is using some borrowed CPAP to help with his breathing at nighttime Progressive increase (over 30), suspicious for obesity hypoventilation syndrome in the context of LOPEZ Recommendations Continue BiPAP at nighttime until discharge Update ABGs checked for chronic hypercapnia/OH S diagnosis Continue medications for hypertension management and rhythm control per cardiology recommendations Sleep study once discharged from the hospital and in stable medical status. We will arrange for this to be follow-up the office once patient's release Chemistry at the office for follow-up of this. Instructions given to patient We'll sign off. Subjective Date of service: 12/16/17 Principal diagnosis: afib; HTN; AAA Interval history: No complaints. Asking when he can be discharged. Objective Vital Signs - 12hr 12/15/17 12/16/17 12/16/17 23:36 00:22 01:13 Temperature 98.6 F Pulse Rate 74 61 64 Respiratory 20 18 Rate Blood Pressure 147/89 Blood Pressure 147/89 [Left] O2 Sat by Pulse 99 98 99 Oximetry 12/16/17 12/16/17 12/16/17 05:37 07:01 08:02 Temperature 98.6 F 98.6 F Pulse Rate 57 L 57 L 64 Respiratory 18 22 Rate Blood Pressure 150/112 161/83 Blood Pressure 150/112 [Left] O2 Sat by Pulse 100 98 Oximetry 12/16/17 09:34 Temperature Pulse Rate Respiratory Rate Blood Pressure Blood Pressure [Left] O2 Sat by Pulse 98 Oximetry Constitutional: no acute distress, alert, other (morbidly obese) Eyes: non-icteric ENT: oropharynx moist Neck: supple, no JVD Effort: mildly labored Ascultation: Bilateral: clear, diminished breath sounds, rales Percussion: Bilateral: not dull Tactile fremitus: Bilateral: normal Cardiovascular: irregular rhythm (but currently rate controlled) Gastrointestinal: normoactive bowel sounds, soft, other (obese) Extremities: no cyanosis, edema Neurologic: normal mental status, non-focal exam Psychiatric: mood appropriate, affect normal CBC and BMP: 12/15/17 Unknown 12/15/17 Unknown ABG, PT/INR, D-dimer: PT/INR, D-dimer PT 14.7 Sec. (12.2-14.9) 12/16/17 05:02 INR 1.09 (0.87-1.13) 12/16/17 05:02 D-Dimer 1391.51 ng/mlDDU (0-234) H 12/12/17 03:52 Abnormal lab findings: Abnormal Labs 12/12/17 12/12/17 12/12/17 03:49 03:52 03:52 RBC 5.18 H MCV 81 L MCH 26 L RDW 17.5 H [place] % (Auto) 7.7 H [place] # Seg Neutrophils % 74.0 H Seg Neutrophils # 7.9 H D-Dimer 1391.51 H Potassium 3.3 L Chloride 97.1 L Carbon Dioxide BUN Glucose 150 H POC Glucose Hemoglobin A1c Phosphorus AST 41 H ALT 61 H Troponin T NT-Pro-B Natriuret Pep 7260 H Total Protein 5.9 L Albumin 3.3 L HDL Cholesterol 12/12/17 12/12/17 12/12/17 06:41 11:32 12:05 RBC MCV MCH RDW [place] % (Auto) [place] # Seg Neutrophils % Seg Neutrophils # D-Dimer Potassium Chloride Carbon Dioxide BUN Glucose POC Glucose 124 H Hemoglobin A1c 6.3 H Phosphorus 4.70 H AST ALT Troponin T NT-Pro-B Natriuret Pep Total Protein Albumin HDL Cholesterol 12/12/17 12/13/17 12/13/17 18:39 05:09 05:09 RBC 5.05 H MCV 81 L MCH 26 L RDW 17.7 H [place] % (Auto) 9.3 H [place] # 0.9 H Seg Neutrophils % 71.9 H Seg Neutrophils # D-Dimer Potassium Chloride 97.6 L Carbon Dioxide 31 H BUN Glucose 121 H POC Glucose 118 H Hemoglobin A1c Phosphorus AST ALT Troponin T NT-Pro-B Natriuret Pep Total Protein Albumin HDL Cholesterol 12/13/17 12/13/17 12/13/17 07:48 11:39 15:38 RBC MCV MCH RDW [place] % (Auto) [place] # Seg Neutrophils % Seg Neutrophils # D-Dimer Potassium Chloride Carbon Dioxide BUN Glucose POC Glucose 123 H 114 H Hemoglobin A1c Phosphorus AST ALT Troponin T 0.032 H D NT-Pro-B Natriuret Pep Total Protein Albumin HDL Cholesterol 29 L 12/13/17 12/14/17 12/14/17 22:02 07:47 07:47 RBC MCV 81 L MCH 26 L RDW 17.3 H [place] % (Auto) [place] # Seg Neutrophils % Seg Neutrophils # D-Dimer Potassium 3.5 L Chloride Carbon Dioxide 33 H BUN 22 H Glucose 117 H POC Glucose 113 H Hemoglobin A1c Phosphorus AST ALT Troponin T NT-Pro-B Natriuret Pep Total Protein Albumin HDL Cholesterol 12/14/17 12/15/17 12/15/17 22:19 06:53 12:38 RBC MCV MCH RDW [place] % (Auto) [place] # Seg Neutrophils % Seg Neutrophils # D-Dimer Potassium Chloride Carbon Dioxide BUN Glucose POC Glucose 129 H 116 H 67 L Hemoglobin A1c Phosphorus AST ALT Troponin T NT-Pro-B Natriuret Pep Total Protein Albumin HDL Cholesterol 12/15/17 12/15/17 12/15/17 13:32 Unknown Unknown RBC 5.12 H MCV 81 L MCH 26 L RDW 17.4 H [place] % (Auto) [place] # Seg Neutrophils % Seg Neutrophils # D-Dimer Potassium Chloride 93.7 L Carbon Dioxide 35 H BUN 23 H Glucose 107 H POC Glucose 135 H Hemoglobin A1c Phosphorus AST ALT Troponin T NT-Pro-B Natriuret Pep Total Protein Albumin HDL Cholesterol
--- NOTE | 2017-12-16 11:47 | Progress Note ---
Assessment and Plan Assessment: Atrial fibrillation with rapid ventricular response --> SR Hypertensive emergency - improving Chronic dissection aortic aneurysm AAA Acute respiratory failure Acute on chronic combined systolic and diastolic heart failure - improving Morbid obesity H/o medical noncompliance Suspected LOPEZ Plan: BPs improving. Initiate lisinopril. Cont Coumadin with lovenox "bridging". Convert IV lasix to PO lasix 40mg daily. Assessment and plan reviewed with pt at bedside. The patient has been seen in conjunction with Dr. Milian who agrees with the assessment and plan of care. Subjective Date of service: 12/16/17 Principal diagnosis: afib; HTN; AAA Interval history: pt resting comfortably up in chair, no current cardiac complaints. tele reviewed - pt remains in NSR. BPs improving. Objective Last Vital Signs Temp 98.6 F 12/16/17 08:02 Pulse 62 12/16/17 10:00 Resp 22 12/16/17 08:02 BP 161/83 12/16/17 08:02 Pulse Ox 98 12/16/17 09:34 - Physical Examination General: Appears Well, Other (Morbidly obese.) Neck: Positive: neck supple, trachea midline. Negative: JVD/HJR Cardiac: Positive: Reg Rate and Rhythm, S1/S2 Lungs: Positive: clear to auscultation Neuro: Positive: Grossly Intact Abdomen: Positive: Other (morbidly obese. cannot feel any organs or hear any bruit.) Extremities: Present: normal - Labs and Meds Coagulation 12/16/17 Range/Units 05:02 PT 14.7 (12.2-14.9) Sec. INR 1.09 (0.87-1.13) - Imaging and Cardiology EKG: report reviewed Echo: report reviewed (EF 35-40%, mod LVH, abnormal diastolic function, LA mod to severely dilated, RVSP 20-25mmHg, mild dilatation of the aortic root. )
--- NOTE | 2017-12-16 17:35 | Progress Note ---
Assessment and Plan /Atrial fibrillation with rapid ventricular response. Off Cardizem drip now, He is now rate controlled, Cardiology following on lovenox with bridging coumadin /Acute on chronic systolic CHF. He has been out of meds for more than 1 yr. Continue Lasix, Metoprolol, Strict fluid I/O Echo: EF 35-40% on Echo done 12/12/17 /Hypertensive emergency. BP improved on Clonidine, Metoprolol, Norvasc /Chronic dissection aortic aneurysm Consulted vasc surg and he was evaluated. They recommend conservative management. No indication for urgent surgery /Chest pain. Cardiology following. medical mx /Acute respiratory failure due to CHF exacerbation, rapid afib. Supplemental Oxygen. Pulm following /Borderline diabetes. A1C 6.3, Fingerstick qac and hs Medical non compliance because he has no insurance and no money to buy meds or follow up with Doctors. Consulted case management Full code status Disposition: when INR therapeutic Brief history: Patient is 42 yo with history of hypertension, CHF, aortic aneurysm with chronic dissection presented to ER with chest pain and shortness of breath for 2 days. He stated he has not taken any of his meds in more than 1 yr because he has no insurance, does not have a PCP and has no money. In ED, found to have rapid atrial fibrillation, CHF exacerbation, hypertensive emergency, admited to ICU with cardizem drip. Hospitalist Physical Constitutional; Not in acute distress,morbidly obese HEENT: Atraumatic, normocephalic Neck: supple, no lymphadenopathy, JVD or thyromegaly Lungs: Clear to auscultation, bilaterally, no wheeze, no crackles CVS; S1-S2 irregular, irregular, no murmurs, rubs or gallop, Abdomen; soft, non-tender, non distended,bowel sounds are normal, Musculoskeletal; Bilateral pitting lower ext edema, [employer]: awake, alert,oriented x3, no focal neurological signs Psych:normal mood Subjective Date of service: 12/16/17 Principal diagnosis: afib; HTN; AAA Interval history: Pt seen and examined No acute event O/N updated family at bedside, INR 1.09 today Objective - Constitutional Vitals: Vital Signs - 12hr 12/16/17 12/16/17 12/16/17 05:37 07:01 08:02 Temperature 98.6 F 98.6 F Pulse Rate 57 L 57 L 64 Respiratory 18 22 Rate Blood Pressure 150/112 161/83 Blood Pressure 150/112 [Left] O2 Sat by Pulse 100 98 Oximetry 12/16/17 12/16/17 09:34 10:00 Temperature Pulse Rate 62 Respiratory Rate Blood Pressure Blood Pressure [Left] O2 Sat by Pulse 98 Oximetry - Labs CBC & Chem 7: 12/15/17 Unknown 12/15/17 Unknown Labs: Abnormal lab results 12/16/17 Range/Units 17:13 POC ABG pH 7.475 H (7.35-7.45) POC ABG pCO2 47.2 H (35-45) POC ABG pO2 63 L (80-105)
[2017-12-16] MEDS: COUMADIN PO SCH (17:45)
[2017-12-17 06:18] LABS: INR 1.12 (0.87-1.13)
[2017-12-17] MEDS: CATAPRES PO SCH ×2 (10:42→21:48)
[2017-12-17] MEDS: LASIX PO SCH (10:42)
[2017-12-17] MEDS: PEPCID PO SCH ×2 (10:42→21:47)
[2017-12-17] MEDS: LOPRESSOR PO SCH ×2 (10:43→21:47)
[2017-12-17] MEDS: NORVASC PO SCH (10:43)
[2017-12-17] MEDS: ZESTRIL PO SCH (10:43)
[2017-12-17] MEDS: SODIUM CHLORIDE FLUSH SYRINGE 10 ML IV SCH ×2 (10:44→21:48)
[2017-12-17] MEDS: LOVENOX SUB-Q SCH ×2 (10:55→21:49)
[2017-12-17] MEDS ORDERED: COUMADIN PO SCH ×2 (13:46→17:00)
--- NOTE | 2017-12-17 14:45 | Progress Note ---
Assessment and Plan Assessment: Atrial fibrillation with rapid ventricular response --> SR Hypertensive emergency - improving Chronic dissection aortic aneurysm AAA Acute respiratory failure Acute on chronic combined systolic and diastolic heart failure - nearing/at euvolemia Morbid obesity H/o medical noncompliance Suspected LOPEZ Plan: Currently stable cardiac status. Cont present cardiac regimen. Cont Coumadin with lovenox "bridging". Nothing further to add from cardiac perspective at this time. Will follow on as needed basis. Recommend follow up in our office with Dr. Coe within 3-5 days of hospital discharge ([phone]). Assessment and plan reviewed with pt at bedside. The patient has been seen in conjunction with Dr. Milian who agrees with the assessment and plan of care. Subjective Date of service: 12/17/17 Principal diagnosis: afib; HTN; AAA Interval history: pt resting comfortably up in chair, no current cardiac complaints. tele reviewed - pt remains in NSR. BPs improving. Objective Last Vital Signs Temp 98.0 F 12/17/17 07:58 Pulse 68 12/17/17 10:43 Resp 22 12/17/17 07:58 BP 147/93 12/17/17 10:43 Pulse Ox 96 12/17/17 09:35 - Physical Examination General: Appears Well, Other (Morbidly obese.) Neck: Positive: neck supple, trachea midline. Negative: JVD/HJR Cardiac: Positive: Reg Rate and Rhythm, S1/S2 Lungs: Positive: clear to auscultation Neuro: Positive: Grossly Intact Abdomen: Positive: Other (morbidly obese. cannot feel any organs or hear any bruit.) Extremities: Present: normal - Labs and Meds Coagulation 12/17/17 Range/Units 05:07 PT 15.0 H (12.2-14.9) Sec. INR 1.12 (0.87-1.13) - Imaging and Cardiology EKG: report reviewed Echo: report reviewed (EF 35-40%, mod LVH, abnormal diastolic function, LA mod to severely dilated, RVSP 20-25mmHg, mild dilatation of the aortic root. ) - Telemetry EKG Rhythm: Sinus Rhythm
[2017-12-17] MEDS: COUMADIN PO SCH (16:10)
--- NOTE | 2017-12-17 16:18 | Progress Note ---
Assessment and Plan /Atrial fibrillation with rapid ventricular response. Off Cardizem drip now, He is now rate controlled, Cardiology following on lovenox with bridging coumadin, increase coumadin dose to 12.5 /Acute on chronic systolic CHF. He has been out of meds for more than 1 yr. Continue Lasix, Metoprolol, Strict fluid I/O Echo: EF 35-40% on Echo done 12/12/17 /Hypertensive emergency. BP improved on Clonidine, Metoprolol, Norvasc /Chronic dissection aortic aneurysm Consulted vasc surg and he was evaluated. They recommend conservative management. No indication for urgent surgery /Chest pain. Cardiology following. medical mx /Acute respiratory failure due to CHF exacerbation, rapid afib. Supplemental Oxygen. Pulm following /Borderline diabetes. A1C 6.3, Fingerstick qac and hs Medical non compliance because he has no insurance and no money to buy meds or follow up with Doctors. Consulted case management Full code status Disposition: when INR therapeutic Brief history: Patient is 42 yo with history of hypertension, CHF, aortic aneurysm with chronic dissection presented to ER with chest pain and shortness of breath for 2 days. He stated he has not taken any of his meds in more than 1 yr because he has no insurance, does not have a PCP and has no money. In ED, found to have rapid atrial fibrillation, CHF exacerbation, hypertensive emergency, admited to ICU with cardizem drip. Hospitalist Physical Constitutional; Not in acute distress,morbidly obese HEENT: Atraumatic, normocephalic Neck: supple, no lymphadenopathy, JVD or thyromegaly Lungs: Clear to auscultation, bilaterally, no wheeze, no crackles CVS; S1-S2 irregular, irregular, no murmurs, rubs or gallop, Abdomen; soft, non-tender, non distended,bowel sounds are normal, Musculoskeletal; Bilateral pitting lower ext edema, PROCESS CONTROL TECH: awake, alert,oriented x3, no focal neurological signs Psych:normal mood Subjective Date of service: 12/17/17 Principal diagnosis: afib; HTN; AAA Interval history: Pt seen and examined No acute event O/N updated family at bedside, INR 1.12 today Objective - Constitutional Vitals: Vital Signs - 12hr 12/17/17 12/17/17 12/17/17 07:58 08:46 09:35 Temperature 98.0 F Pulse Rate 68 77 Respiratory 22 Rate Blood Pressure 147/93 O2 Sat by Pulse 97 96 Oximetry 12/17/17 12/17/17 10:42 10:43 Temperature Pulse Rate 68 68 Respiratory Rate Blood Pressure 147/93 147/93 O2 Sat by Pulse Oximetry - Labs CBC & Chem 7: 12/15/17 Unknown 12/15/17 Unknown Labs: Abnormal lab results 12/16/17 12/17/17 Range/Units 17:13 05:07 PT 15.0 H (12.2-14.9) Sec. POC ABG pH 7.475 H (7.35-7.45) POC ABG pCO2 47.2 H (35-45) POC ABG pO2 63 L (80-105)
[2017-12-18 07:06] LABS: INR 1.19 (0.87-1.13)
[2017-12-18] MEDS: LASIX PO SCH (09:07)
[2017-12-18] MEDS: LOPRESSOR PO SCH ×2 (09:07→22:14)
[2017-12-18] MEDS: CATAPRES PO SCH ×2 (09:07→22:14)
[2017-12-18] MEDS: NORVASC PO SCH (09:08)
[2017-12-18] MEDS: LOVENOX SUB-Q SCH ×2 (09:08→22:15)
[2017-12-18] MEDS: PEPCID PO SCH ×2 (09:08→22:14)
[2017-12-18] MEDS: ZESTRIL PO SCH (09:09)
[2017-12-18] MEDS: SODIUM CHLORIDE FLUSH SYRINGE 10 ML IV SCH ×2 (09:09→22:14)
--- NOTE | 2017-12-18 15:23 | Progress Note ---
Assessment and Plan /Atrial fibrillation with rapid ventricular response. Off Cardizem drip now, He is now rate controlled, Cardiology following on lovenox with bridging coumadin, increase coumadin dose to 15 mg today /Acute on chronic systolic CHF. He has been out of meds for more than 1 yr. Continue Lasix, Metoprolol, Strict fluid I/O Echo: EF 35-40% on Echo done 12/12/17 /Hypertensive emergency. BP improved on Clonidine, Metoprolol, Norvasc /Chronic dissection aortic aneurysm Consulted vasc surg and he was evaluated. They recommend conservative management. No indication for urgent surgery /Chest pain. Cardiology following. medical mx /Acute respiratory failure due to CHF exacerbation, rapid afib. Supplemental Oxygen. Pulm following /Borderline diabetes. A1C 6.3, Fingerstick qac and hs Medical non compliance because he has no insurance and no money to buy meds or follow up with Doctors. Consulted case management Full code status Disposition: when INR therapeutic Brief history: Patient is 42 yo with history of hypertension, CHF, aortic aneurysm with chronic dissection presented to ER with chest pain and shortness of breath for 2 days. He stated he has not taken any of his meds in more than 1 yr because he has no insurance, does not have a PCP and has no money. In ED, found to have rapid atrial fibrillation, CHF exacerbation, hypertensive emergency, admited to ICU with cardizem drip. Hospitalist Physical Constitutional; Not in acute distress,morbidly obese HEENT: Atraumatic, normocephalic Neck: supple, no lymphadenopathy, JVD or thyromegaly Lungs: Clear to auscultation, bilaterally, no wheeze, no crackles CVS; S1-S2 irregular, irregular, no murmurs, rubs or gallop, Abdomen; soft, non-tender, non distended,bowel sounds are normal, Musculoskeletal; Bilateral pitting lower ext edema, EQUIPMENT MANAGER: awake, alert,oriented x3, no focal neurological signs Psych:normal mood Subjective Date of service: 12/18/17 Principal diagnosis: afib; HTN; AAA Interval history: Pt seen and examined No acute event O/N updated family at bedside, INR 1.19 today Objective - Constitutional Vitals: Vital Signs - 12hr 12/18/17 12/18/17 12/18/17 04:49 08:25 09:01 Temperature 97.7 F 98.8 F Pulse Rate 67 66 75 Pulse Rate [ From Monitor] Respiratory 20 20 Rate Blood Pressure 149/73 Blood Pressure 139/96 [Left] O2 Sat by Pulse 93 96 Oximetry 12/18/17 12/18/17 12/18/17 09:07 09:08 09:09 Temperature Pulse Rate 75 75 75 Pulse Rate [ From Monitor] Respiratory Rate Blood Pressure 139/96 139/96 139/96 Blood Pressure [Left] O2 Sat by Pulse Oximetry 12/18/17 12/18/17 09:14 12:30 Temperature 98.5 F Pulse Rate 60 Pulse Rate [ 75 From Monitor] Respiratory 22 Rate Blood Pressure Blood Pressure 145/73 [Left] O2 Sat by Pulse 91 Oximetry - Labs CBC & Chem 7: 12/15/17 Unknown 12/15/17 Unknown Labs: Abnormal lab results 12/18/17 Range/Units 05:31 PT 15.8 H (12.2-14.9) Sec. INR 1.19 H (0.87-1.13)
[2017-12-18] MEDS: COUMADIN PO SCH ×2 (16:12→16:13)
[2017-12-19 05:11] LABS: INR 1.34 (0.87-1.13)
[2017-12-19] MEDS: LOPRESSOR PO SCH ×2 (10:06→22:01)
[2017-12-19] MEDS: LOVENOX SUB-Q SCH ×2 (10:06→22:03)
[2017-12-19] MEDS: LASIX PO SCH (10:06)
[2017-12-19] MEDS: ZESTRIL PO SCH (10:06)
[2017-12-19] MEDS: CATAPRES PO SCH ×2 (10:06→22:02)
[2017-12-19] MEDS: NORVASC PO SCH (10:06)
[2017-12-19] MEDS: SODIUM CHLORIDE FLUSH SYRINGE 10 ML IV SCH ×2 (10:06→22:03)
[2017-12-19] MEDS: PEPCID PO SCH ×2 (10:06→22:01)
--- NOTE | 2017-12-19 12:28 | Progress Note ---
Assessment and Plan /Atrial fibrillation with rapid ventricular response. Off Cardizem drip now, He is now rate controlled, Cardiology following on lovenox with bridging coumadin, increased coumadin dose to upto 15 mg /Acute on chronic systolic CHF. He has been out of meds for more than 1 yr. Continue Lasix, Metoprolol, Strict fluid I/O Echo: EF 35-40% on Echo done 12/12/17 /Hypertensive emergency. BP improved on Clonidine, Metoprolol, Norvasc /Chronic dissection aortic aneurysm Consulted vasc surg and he was evaluated. They recommend conservative management. No indication for urgent surgery /Chest pain. Cardiology following. medical mx /Acute respiratory failure due to CHF exacerbation, rapid afib. Supplemental Oxygen. Pulm following /Borderline diabetes. A1C 6.3, Fingerstick qac and hs Medical non compliance because he has no insurance and no money to buy meds or follow up with Doctors. Consulted case management Full code status Disposition: when INR therapeutic Brief history: Patient is 42 yo with history of hypertension, CHF, aortic aneurysm with chronic dissection presented to ER with chest pain and shortness of breath for 2 days. He stated he has not taken any of his meds in more than 1 yr because he has no insurance, does not have a PCP and has no money. In ED, found to have rapid atrial fibrillation, CHF exacerbation, hypertensive emergency, admited to ICU with cardizem drip. Hospitalist Physical Constitutional; Not in acute distress,morbidly obese HEENT: Atraumatic, normocephalic Neck: supple, no lymphadenopathy, JVD or thyromegaly Lungs: Clear to auscultation, bilaterally, no wheeze, no crackles CVS; S1-S2 irregular, irregular, no murmurs, rubs or gallop, Abdomen; soft, non-tender, non distended,bowel sounds are normal, Musculoskeletal; Bilateral pitting lower ext edema, EVALUATION ENGINEER: awake, alert,oriented x3, no focal neurological signs Psych:normal mood Subjective Date of service: 12/19/17 Principal diagnosis: afib; HTN; AAA Interval history: Pt seen and examined No acute event O/N updated patient at bedside, INR 1.34 today Objective - Constitutional Vitals: Vital Signs - 12hr 12/19/17 12/19/17 12/19/17 05:37 07:46 09:35 Temperature 98.2 F 98.6 F Pulse Rate 64 69 Respiratory 18 20 Rate Blood Pressure 159/79 160/93 Blood Pressure [Left] O2 Sat by Pulse 92 95 96 Oximetry 12/19/17 12/19/17 10:00 12:15 Temperature 98.9 F Pulse Rate 64 66 Respiratory 18 Rate Blood Pressure Blood Pressure 147/84 [Left] O2 Sat by Pulse 92 Oximetry - Labs CBC & Chem 7: 12/15/17 Unknown 12/15/17 Unknown Labs: Abnormal lab results 12/18/17 12/19/17 Range/Units 18:17 03:58 PT 17.3 H (12.2-14.9) Sec. INR 1.34 H (0.87-1.13) POC Glucose 131 H (70-105)
[2017-12-19] MEDS: COUMADIN PO SCH ×2 (17:29)
[2017-12-20 08:15] LABS: INR 1.33 (0.87-1.13)
[2017-12-20] MEDS: NORVASC PO SCH (10:59)
[2017-12-20] MEDS: ZESTRIL PO SCH (10:59)
[2017-12-20] MEDS: LASIX PO SCH (10:59)
[2017-12-20] MEDS: CATAPRES PO SCH ×2 (10:59→22:50)
[2017-12-20] MEDS: LOVENOX SUB-Q SCH ×2 (10:59→22:52)
[2017-12-20] MEDS: SODIUM CHLORIDE FLUSH SYRINGE 10 ML IV SCH (11:00)
[2017-12-20] MEDS: LOPRESSOR PO SCH ×2 (11:00→22:50)
[2017-12-20] MEDS: PEPCID PO SCH ×2 (11:00→22:52)
--- NOTE | 2017-12-20 16:24 | Progress Note ---
Assessment and Plan /Atrial fibrillation with rapid ventricular response. Off Cardizem drip now, He is now rate controlled, Cardiology following on lovenox with bridging coumadin, increased coumadin dose to upto 15 mg /Acute on chronic systolic CHF. He has been out of meds for more than 1 yr. Continue Lasix, Metoprolol, Strict fluid I/O Echo: EF 35-40% on Echo done 12/12/17 /Hypertensive emergency. BP improved on Clonidine, Metoprolol, Norvasc /Chronic dissection aortic aneurysm Consulted vasc surg and he was evaluated. They recommend conservative management. No indication for urgent surgery /Chest pain. Cardiology following. medical mx /Acute respiratory failure due to CHF exacerbation, rapid afib. Supplemental Oxygen. Pulm following /Borderline diabetes. A1C 6.3, Fingerstick qac and hs Medical non compliance because he has no insurance and no money to buy meds or follow up with Doctors. Consulted case management Full code status Disposition: when INR therapeutic Brief history: Patient is 42 yo with history of hypertension, CHF, aortic aneurysm with chronic dissection presented to ER with chest pain and shortness of breath for 2 days. He stated he has not taken any of his meds in more than 1 yr because he has no insurance, does not have a PCP and has no money. In ED, found to have rapid atrial fibrillation, CHF exacerbation, hypertensive emergency, admited to ICU with cardizem drip. Hospitalist Physical Constitutional; Not in acute distress,morbidly obese HEENT: Atraumatic, normocephalic Neck: supple, no lymphadenopathy, JVD or thyromegaly Lungs: Clear to auscultation, bilaterally, no wheeze, no crackles CVS; S1-S2 irregular, irregular, no murmurs, rubs or gallop, Abdomen; soft, non-tender, non distended,bowel sounds are normal, Musculoskeletal; Bilateral pitting lower ext edema, ELEVATOR REPAIRER HELPER: awake, alert,oriented x3, no focal neurological signs Psych:normal mood Subjective Date of service: 12/20/17 Principal diagnosis: afib; HTN; AAA Interval history: Pt seen and examined No acute event O/N updated patient at bedside, INR 1.34 today Objective - Constitutional Vitals: Vital Signs - 12hr 12/20/17 12/20/17 12/20/17 05:42 07:59 10:00 Temperature 98.9 F 98.6 F Pulse Rate 68 64 68 Respiratory 18 18 Rate Blood Pressure Blood Pressure 149/85 152/96 [Left] O2 Sat by Pulse 95 97 Oximetry 12/20/17 12/20/17 12/20/17 11:42 12:05 15:21 Temperature 98.7 F 97.3 F L Pulse Rate 62 61 Respiratory 18 19 Rate Blood Pressure 149/82 136/88 Blood Pressure [Left] O2 Sat by Pulse 92 98 96 Oximetry - Labs CBC & Chem 7: 12/15/17 Unknown 12/15/17 Unknown Labs: Abnormal lab results 12/20/17 Range/Units 07:08 PT 17.2 H (12.2-14.9) Sec. INR 1.33 H (0.87-1.13)
[2017-12-20] MEDS: COUMADIN PO SCH ×2 (17:50)
[2017-12-21 06:40] LABS: INR 1.38 (0.87-1.13)
[2017-12-21 06:49] LABS: BUN/Creatinine Ratio 14; Blood Urea Nitrogen 13 mg/dL (9-20); Calcium 8.9 mg/dL (8.4-10.2); Hemolysis Index 4
[2017-12-21] MEDS: SODIUM CHLORIDE FLUSH SYRINGE 10 ML IV SCH ×3 (08:12→22:46)
[2017-12-21] MEDS: NORVASC PO SCH (10:26)
[2017-12-21] MEDS: ZESTRIL PO SCH (10:26)
[2017-12-21] MEDS: LOPRESSOR PO SCH ×2 (10:26→22:44)
[2017-12-21] MEDS: CATAPRES PO SCH ×2 (10:26→22:44)
[2017-12-21] MEDS: PEPCID PO SCH ×2 (10:26→22:44)
[2017-12-21] MEDS: LASIX PO SCH (10:26)
[2017-12-21] MEDS: LOVENOX SUB-Q SCH ×2 (10:30→22:43)
--- NOTE | 2017-12-21 13:57 | Progress Note ---
Assessment and Plan /Atrial fibrillation with rapid ventricular response. Off Cardizem drip now, He is now rate controlled, Cardiology following on lovenox with bridging coumadin, increased coumadin dose to upto 15 mg cont to monitor INR /Acute on chronic systolic CHF. He has been out of meds for more than 1 yr. Continue Lasix, Metoprolol, Strict fluid I/O Echo: EF 35-40% on Echo done 12/12/17 /Hypertensive emergency. BP improved on Clonidine, Metoprolol, Norvasc /Chronic dissection aortic aneurysm Consulted vasc surg and he was evaluated. They recommend conservative management. No indication for urgent surgery /Chest pain. Cardiology following. medical mx /Acute respiratory failure due to CHF exacerbation, rapid afib. Supplemental Oxygen. Pulm following /Borderline diabetes. A1C 6.3, Fingerstick qac and hs Medical non compliance because he has no insurance and no money to buy meds or follow up with Doctors. Consulted case management Full code status Disposition: when INR therapeutic Brief history: Patient is 42 yo with history of hypertension, CHF, aortic aneurysm with chronic dissection presented to ER with chest pain and shortness of breath for 2 days. He stated he has not taken any of his meds in more than 1 yr because he has no insurance, does not have a PCP and has no money. In ED, found to have rapid atrial fibrillation, CHF exacerbation, hypertensive emergency, admited to ICU with cardizem drip. Hospitalist Physical Constitutional; Not in acute distress,morbidly obese HEENT: Atraumatic, normocephalic Neck: supple, no lymphadenopathy, JVD or thyromegaly Lungs: Clear to auscultation, bilaterally, no wheeze, no crackles CVS; S1-S2 irregular, irregular, no murmurs, rubs or gallop, Abdomen; soft, non-tender, non distended,bowel sounds are normal, Musculoskeletal; Bilateral pitting lower ext edema, BRIM BLOCKER: awake, alert,oriented x3, no focal neurological signs Psych:normal mood Subjective Date of service: 12/21/17 Principal diagnosis: afib; HTN; AAA Interval history: Pt seen and examined No acute event O/N updated patient at bedside, INR 1.38 today Objective - Constitutional Vitals: Vital Signs - 12hr 12/21/17 12/21/17 12/21/17 05:52 08:08 10:00 Temperature 98.2 F 97.9 F Pulse Rate 68 64 64 Respiratory 18 22 Rate Blood Pressure 146/85 135/83 O2 Sat by Pulse 88 94 95 Oximetry - Labs CBC & Chem 7: 12/15/17 Unknown 12/21/17 05:01 Labs: Abnormal lab results 12/21/17 12/21/17 Range/Units 05:01 05:01 PT 17.8 H (12.2-14.9) Sec. INR 1.38 H (0.87-1.13) Glucose 112 H (75-100) mg/dL
[2017-12-21] MEDS ORDERED: COUMADIN PO SCH ×2 (17:00)
[2017-12-21] MEDS: COUMADIN PO SCH ×2 (17:23)
[2017-12-22 06:18] LABS: INR 1.8 (0.87-1.13)
--- NOTE | 2017-12-22 09:27 | Progress Note ---
Assessment and Plan Assessment and plan: Patient is 42 yo with history of hypertension, CHF, aortic aneurysm with chronic dissection presented to ER with chest pain and shortness of breath for 2 days. He stated he has not taken any of his meds in more than 1 yr because he has no insurance, does not have a PCP and has no money. In ED, found to have rapid atrial fibrillation, CHF exacerbation, hypertensive emergency, admitted to ICU with cardizem drip. /Atrial fibrillation with rapid ventricular response. Off Cardizem drip now, He is now rate controlled, Cardiology following on lovenox with bridging coumadin, increased coumadin dose to up to 15 mg cont to monitor INR /Acute on chronic systolic CHF. He has been out of meds for more than 1 yr. Continue Lasix, Metoprolol, Strict fluid I/O Echo: EF 35-40% on Echo done 12/12/17 /Hypertensive emergency. BP improved on Clonidine, Metoprolol, Norvasc /Chronic dissection aortic aneurysm Consulted vasc surg and he was evaluated. They recommend conservative management. No indication for urgent surgery /Chest pain, atypical, suspect costochondritis but defer to Cardiology Cardiology following. medical mx /Acute respiratory failure due to CHF exacerbation, rapid afib. Supplemental Oxygen. Pulm following /Borderline diabetes. A1C 6.3, Fingerstick qac and hs /Morbid Obesity, bmi 61 lifestyle modification discussed Medical non compliance because he has no insurance and no money to buy meds or follow up with Doctors. Consulted case management Full code status Disposition: continue inpatient care and d/c when INR therapeutic History Interval history: Patient was seen and examined. Follow-up on current diagnosis. Overnight uneventful. Patient denies any chest pain, shortness breath, nausea/vomiting or severe headaches. Imaging, nursing note, chart, labs and old chart reviewed. Discussed with patient. Hospitalist Physical - Physical exam Narrative exam: GEN: WDWN, NAD, Awake, Alert, Orientated HEENT: NCAT, EOMI, PERRL, OP Clear NECK: supple, no adenopathy, no thyromegaly, no JVD CVS/HEART: irregular irregular, normal S1S2, pulses present bilaterally CHEST/LUNGS: CTA B, Symmetrical chest expansion, good air entry bilaterally GI/Abdomen: soft, NTND, good bowel sounds, no guarding or rebound /Bladder: no suprapubic tenderness, no CVA or paraspinal tenderness EXT/Skin: no c/c/e, no obvious rash MSK: FROM x 4 Neuro: CN 2-12 grossly intact, no new focal deficits Psych: calm - Constitutional Vitals: Temp Pulse Resp BP Pulse Ox 98.0 F 61 22 173/94 94 12/22/17 08:19 12/22/17 08:19 12/22/17 08:19 12/22/17 08:19 12/22/17 09:09 General appearance: Present: no acute distress Results - Labs CBC & Chem 7: 12/15/17 Unknown 12/21/17 05:01 Labs: Laboratory Last Values WBC 8.9 K/mm3 (4.5-11.0) 12/15/17 Unknown RBC 5.12 M/mm3 (3.65-5.03) H 12/15/17 Unknown Hgb 13.4 gm/dl (11.8-15.2) 12/15/17 Unknown Hct 41.6 % (35.5-45.6) 12/15/17 Unknown MCV 81 fl (84-94) L 12/15/17 Unknown MCH 26 pg (28-32) L 12/15/17 Unknown MCHC 32 % (32-34) 12/15/17 Unknown RDW 17.4 % (13.2-15.2) H 12/15/17 Unknown Plt Count 215 K/mm3 (140-440) 12/15/17 Unknown Lymph % (Auto) 15.1 % (13.4-35.0) 12/13/17 05:09 [place] % (Auto) 9.3 % (0.0-7.3) H 12/13/17 05:09 Eos % (Auto) 2.9 % (0.0-4.3) 12/13/17 05:09 Baso % (Auto) 0.8 % (0.0-1.8) 12/13/17 05:09 Lymph # 1.5 K/mm3 (1.2-5.4) 12/13/17 05:09 [place] # 0.9 K/mm3 (0.0-0.8) H 12/13/17 05:09 Eos # 0.3 K/mm3 (0.0-0.4) 12/13/17 05:09 Baso # 0.1 K/mm3 (0.0-0.1) 12/13/17 05:09 Seg Neutrophils % 71.9 % (40.0-70.0) H 12/13/17 05:09 Seg Neutrophils # 7.3 K/mm3 (1.8-7.7) 12/13/17 05:09 PT 22.0 Sec. (12.2-14.9) H 12/22/17 05:28 INR 1.80 (0.87-1.13) H 12/22/17 05:28 D-Dimer 1391.51 ng/mlDDU (0-234) H 12/12/17 03:52 POC ABG pH 7.475 (7.35-7.45) H 12/16/17 17:13 POC ABG pCO2 47.2 (35-45) H 12/16/17 17:13 POC ABG pO2 63 (80-105) L 12/16/17 17:13 POC ABG HCO3 34.8 12/16/17 17:13 POC ABG Total CO2 36 12/16/17 17:13 POC ABG O2 Sat 93 12/16/17 17:13 POC ABG Base Excess 11 12/16/17 17:13 FiO2 21 % 12/16/17 17:13 Sodium 139 mmol/L (137-145) 12/21/17 05:01 Potassium 4.2 mmol/L (3.6-5.0) 12/21/17 05:01 Chloride 99.4 mmol/L (98-107) 12/21/17 05:01 Carbon Dioxide 29 mmol/L (22-30) 12/21/17 05:01 Anion Gap 15 mmol/L 12/21/17 05:01 BUN 13 mg/dL (9-20) 12/21/17 05:01 Creatinine 0.9 mg/dL (0.8-1.5) 12/21/17 05:01 Estimated GFR > 60 ml/min 12/21/17 05:01 BUN/Creatinine Ratio 14 % 12/21/17 05:01 Glucose 112 mg/dL (75-100) H 12/21/17 05:01 POC Glucose 99 (70-105) 12/21/17 21:52 Hemoglobin A1c 6.3 % (4-6) H 12/12/17 12:05 Lactic Acid 1.20 mmol/L (0.7-2.0) 12/12/17 03:52 Calcium 8.9 mg/dL (8.4-10.2) 12/21/17 05:01 Phosphorus 4.70 mg/dL (2.5-4.5) H 12/12/17 06:41 Magnesium 2.00 mg/dL (1.7-2.3) 12/12/17 06:41 Total Bilirubin 0.30 mg/dL (0.1-1.2) 12/12/17 03:52 AST 41 units/L (5-40) H 12/12/17 03:52 ALT 61 units/L (7-56) H 12/12/17 03:52 Alkaline Phosphatase 92 units/L (35-129) 12/12/17 03:52 Troponin T 0.032 ng/mL (0.00-0.029) H D 12/13/17 15:38 NT-Pro-B Natriuret Pep 7260 pg/mL (0-450) H 12/12/17 03:52 Total Protein 5.9 g/dL (6.3-8.2) L 12/12/17 03:52 Albumin 3.3 g/dL (3.9-5) L 12/12/17 03:52 Albumin/Globulin Ratio 1.3 % 12/12/17 03:52 Triglycerides 86 mg/dL (2-149) 12/13/17 15:38 Cholesterol 150 mg/dL (50-199) 12/13/17 15:38 LDL Cholesterol Direct 109 mg/dL (50-130) 12/13/17 15:38 HDL Cholesterol 29 mg/dL (40-59) L 12/13/17 15:38 Cholesterol/HDL Ratio 5.17 % 12/13/17 15:38
[2017-12-22] MEDS: LOVENOX SUB-Q SCH ×2 (10:03→22:12)
[2017-12-22] MEDS: SODIUM CHLORIDE FLUSH SYRINGE 10 ML IV SCH ×2 (10:03→22:00)
[2017-12-22] MEDS: PEPCID PO SCH ×2 (10:04→22:11)
[2017-12-22] MEDS: CATAPRES PO SCH ×2 (10:04→22:11)
[2017-12-22] MEDS: NORVASC PO SCH (10:04)
[2017-12-22] MEDS: LOPRESSOR PO SCH ×2 (10:05→22:11)
[2017-12-22] MEDS: ZESTRIL PO SCH (10:05)
[2017-12-22] MEDS: LASIX PO SCH (10:05)
[2017-12-22] MEDS: COUMADIN PO SCH ×2 (17:00→18:04)
[2017-12-23 07:11] LABS: INR 2.05 (0.87-1.13)
[2017-12-23] MEDS: LOVENOX SUB-Q SCH (09:51)
[2017-12-23] MEDS: ZESTRIL PO SCH (09:52)
[2017-12-23] MEDS: PEPCID PO SCH (09:53)
[2017-12-23] MEDS: CATAPRES PO SCH (09:53)
[2017-12-23] MEDS: LASIX PO SCH (09:55)
[2017-12-23] MEDS: NORVASC PO SCH (09:55)
[2017-12-23] MEDS: LOPRESSOR PO SCH (09:55)
[2017-12-23 12:17] VITALS: BP 154/81
--- NOTE | 2017-12-23 13:34 | Discharge Summary ---
Providers - Providers Date of Admission: 12/12/17 06:07 Date of discharge: 12/23/17 Attending physician: DINORA RUFF 12/12/17 08:12 Consult to Physician [CONS] Routine Comment: Consulting Provider: LAZARO IRVING Physician Instructions: Reason For Exam: AAA 12/12/17 08:40 Consult to Case Management [CONS] Routine Services Needed at Discharge: Loss Prevention And Safety Manager Notified:: Chikis Phone number called:: in person Was contact made?: Yes If yes, spoke with:: Chikis Time called:: 14:30 Primary care physician: PRINCIPAL MILITARY ANALYST Hospitalization Condition: Stable Hospital course: Patient is 42 yo with history of hypertension, CHF, aortic aneurysm with chronic dissection presented to ER with chest pain and shortness of breath for 2 days. He stated he has not taken any of his meds in more than 1 yr because he has no insurance, does not have a PCP and has no money. In ED, found to have rapid atrial fibrillation, CHF exacerbation, hypertensive emergency, admitted to ICU with cardizem drip. /Atrial fibrillation with rapid ventricular response. Off Cardizem drip now, He is now rate controlled, Cardiology following on lovenox with bridging coumadin, increased coumadin dose to up to 15 mg cont to monitor INR /Acute on chronic systolic CHF. He has been out of meds for more than 1 yr. Continue Lasix, Metoprolol, Strict fluid I/O Echo: EF 35-40% on Echo done 12/12/17 /Hypertensive emergency. BP improved on Clonidine, Metoprolol, Norvasc /Chronic dissection aortic aneurysm Consulted vasc surg and he was evaluated. They recommend conservative management. No indication for urgent surgery /Chest pain, atypical, suspect costochondritis but defer to Cardiology Cardiology following. medical mx /Acute respiratory failure due to CHF exacerbation, rapid afib. Supplemental Oxygen. Pulm following /Borderline diabetes. A1C 6.3, Fingerstick qac and hs /Morbid Obesity, bmi 61 lifestyle modification discussed Medical non compliance because he has no insurance and no money to buy meds or follow up with Doctors. Consulted case management Full code status Disposition: continue inpatient care and d/c when INR therapeutic Disposition: DC-01 TO HOME OR SELFCARE Time spent for discharge: 34 minutes Core Measure Documentation - Palliative Care Palliative Care/ Comfort Measures: Not Applicable - Core Measures Any of the following diagnoses?: heart failure - VTE Discharge Requirements Deep Vein Thrombosis/Pulmonary Embolism Present on Admission: No Has pt received <5 days of overlap therapy or INR<2.0: No Anticoagulant overlap therapy prescribed at discharge: No Contraindication No Overlap Therapy order at DC: Not Indicated - Heart Failure Discharge Requirements MARCELO/ARB for LVSD if EF <40%: Yes Beta soledad at discharge: Yes Exam - Physical Exam Narrative exam: GEN: WDWN, NAD, Awake, Alert, Orientated HEENT: NCAT, EOMI, PERRL, OP Clear NECK: supple, no adenopathy, no thyromegaly, no JVD CVS/HEART: irregular irregular, normal S1S2, pulses present bilaterally CHEST/LUNGS: CTA B, Symmetrical chest expansion, good air entry bilaterally GI/Abdomen: soft, NTND, good bowel sounds, no guarding or rebound /Bladder: no suprapubic tenderness, no CVA or paraspinal tenderness EXT/Skin: no c/c/e, no obvious rash MSK: FROM x 4 Neuro: CN 2-12 grossly intact, no new focal deficits Psych: calm - Constitutional Vitals: Temp Pulse Resp BP Pulse Ox 98.0 F 65 20 154/81 94 12/23/17 11:41 12/23/17 11:41 12/23/17 11:41 12/23/17 11:41 12/23/17 11:41 Plan Activity: other (no strenous activity until cleared by Cardiology) Diet: low salt Special Instructions: record daily BP diary, record blood sugar diary Additional Instructions: Please see you PCP to recheck for diabetes Mellitus and regarding starting Metformin Follow up with: PRIMARY MD SAHARA [Primary Care Provider] - 3-5 Days SUYAPA MARTE MD [Staff Physician] - 7 Days Forms: Warfarin Discharge Instruction Prescriptions: AtorvaSTATin [Lipitor] 40 mg PO QHS #30 tablet amLODIPine [Norvasc] 10 mg PO QDAY #30 tablet cloNIDine [Catapres] 0.2 mg PO BID #60 tablet Famotidine [Pepcid] 20 mg PO BID #60 tablet Furosemide [Lasix TAB] 40 mg PO QDAY #30 tablet Lisinopril [Zestril TAB] 40 mg PO QDAY #30 tablet Metoprolol [Lopressor TAB] 50 mg PO BID #60 tablet Warfarin [Coumadin] 10 mg PO DAILY@1700 #30 tablet
== END 2017-12-23 15:00 | disposition home or self-care (01) | DRG 291 ==
LOC: ED 03:13 → CC1 06:07 → 4A 12-14 16:25
PROVIDERS: ADMIT Internal Medicine; ATTEND Internal Medicine
PROC: 5A09457 Assistance with Respiratory Ventilation, 24-96 Consecutive Hours, Continuous Positive Airway Pressure (ICD-10-PCS; 2017-12-12)
PROC: 5A09557 Assistance with Respiratory Ventilation, Greater than 96 Consecutive Hours, Continuous Positive Airway Pressure (ICD-10-PCS; 2017-12-15)
PROC: 4A033R1 Measurement of Arterial Saturation, Peripheral, Percutaneous Approach (ICD-10-PCS; principal; 2017-12-16)
DX: I11.0 Hypertensive heart disease with heart failure (principal); I71.03 Dissection of thoracoabdominal aorta; J96.00 Acute respiratory failure, unspecified whether with hypoxia or hypercapnia; I16.1 Hypertensive emergency; Z68.44 Body mass index [BMI] 60.0-69.9, adult; I50.43 Acute on chronic combined systolic (congestive) and diastolic (congestive) heart failure; I48.91 Unspecified atrial fibrillation; G47.30 Sleep apnea, unspecified; M94.0 Chondrocostal junction syndrome [Tietze]; E66.01 Morbid (severe) obesity due to excess calories; I71.4 Abdominal aortic aneurysm, without rupture; Z91.14 Patient's other noncompliance with medication regimen; Z82.49 Family history of ischemic heart disease and other diseases of the circulatory system; Z83.3 Family history of diabetes mellitus; Z72.89 Other problems related to lifestyle; Z79.82 Long term (current) use of aspirin
CPT/HCPCS: 36415; 36600; 71045; 71275; 74174; 80048; 80053; 80061; 82140; 82803; 82962; 83036; 83735; 83880; 84100; 84484; 85025; 85027; 85379; 85610; 87040; 93005; 93010; 93306; 94660; 94760; A9270-GY; J0360; J1650; J1940; J7050; Q9967

== ENCOUNTER 2018-12-13 10:46 | Inpatient (IN) | payer OTHER ==
[2018-12-13 11:48] LABS: Bilirubin,Urine NEG (Negative); Blood,Urine NEG (Negative); Color,Urine Yellow (Yellow); Mucus,Urine FEW /HPF; Urobilinogen,Urine < 2.0 mg/dL (<2.0)
[2018-12-13 11:49] LABS: Basophils # (Auto) 0.1 K/mm3 (0.0-0.1); Eosinophils # (Auto) 0.3 K/mm3 (0.0-0.4); Eosinophils % (Auto) 2.4 % (0.0-4.3); Hematocrit 49.7 % (35.5-45.6); Lymphocytes # (Auto) 2.6 K/mm3 (1.2-5.4); Lymphocytes % (Auto) 23.5 % (13.4-35.0); Mean Corpuscular HGB Conc 34 % (32-34); Mean Corpuscular Volume 84 fl (84-94); Monocytes # (Auto) 1.1 K/mm3 (0.0-0.8); Monocytes % (Auto) 9.9 % (0.0-7.3); Platelet Count 246 K/mm3 (140-440); Red Cell Distribution Width 15.9 % (13.2-15.2)
[2018-12-13 12:15] LABS: Alanine Aminotransferase 29 units/L (7-56); Albumin 4.1 g/dL (3.9-5); BUN/Creatinine Ratio 16; Blood Urea Nitrogen 19 mg/dL (9-20); Calcium 9.6 mg/dL (8.4-10.2); Hemolysis Index 16
[2018-12-13] MEDS ORDERED: ZOFRAN IV ONE (16:08)
[2018-12-13] MEDS ORDERED: SUBLIMAZE IV ONE (16:09)
[2018-12-13] MEDS ORDERED: NORMODYNE IV ONE ×3 (16:16→17:00)
--- NOTE | 2018-12-13 16:22 | Emergency Department Report ---
HPI - General Chief Complaint: Abdominal Pain Time Seen by Provider: 12/13/18 16:09 - HPI HPI: Room 18 The patient is a 43-year-old male presented with a chief complaint abdominal pain. The patient states she has right lower quadrant abdominal pain since 06:30. Patient describes the pain is constant and squeezing in nature. Patient denies nausea vomiting or diarrhea. Patient denies history of fever. The patient gives his pain a score of 9/10 Location: [See above] Duration: [See above] Quality: [See above] Severity: [See above] Modifying factors: [see above] Context: [see above] Mode of transportation: [not driving] ED Past Medical Hx - Past Medical History Previous Medical History?: Yes Hx Hypertension: Yes Hx Congestive Heart Failure: Yes Hx Diabetes: (borderline) Additional medical history: previous abdominal aortic dissection; [place] Palsy - Surgical History Past Surgical History?: Yes Additional Surgical History: Fractured jaw repair - Family History Family history: no significant - Social History Smoking Status: Never Smoker Substance Use Type: None (denies illicit drug use) - Medications Home Medications: Home Medications Medication Instructions Recorded Confirmed Last Taken Type Famotidine [Pepcid] 20 mg PO BID #60 tablet 12/23/17 12/13/18 12/12/18 Rx Furosemide [Lasix TAB] 40 mg PO QDAY #30 tablet 12/23/17 12/13/18 12/12/18 Rx Lisinopril [Zestril TAB] 40 mg PO QDAY #30 tablet 12/23/17 12/13/18 12/12/18 Rx Warfarin [Coumadin] 10 mg PO DAILY@1700 #30 tablet 12/23/17 12/13/18 12/12/18 Rx Amlodipine Besylate [Norvasc] 5 mg PO QDAY 12/13/18 12/13/18 12/12/18 History AtorvaSTATin [Lipitor] 40 mg PO QDAY 12/13/18 12/13/18 12/12/18 History Doxazosin [Cardura] 4 mg PO BID 12/13/18 12/13/18 12/12/18 History Metoprolol [Lopressor] 100 mg PO BIDWM 12/13/18 12/13/18 12/12/18 History Warfarin [Coumadin] 2 mg PO QDAY 12/13/18 12/13/18 12/12/18 History metFORMIN [Glucophage] 500 mg PO QAM 12/13/18 12/13/18 12/12/18 History ED Review of Systems ROS: Stated complaint: ABD PAIN Other details as noted in HPI Constitutional: denies: fever Eyes: denies: eye pain ENT: denies: throat pain Respiratory: no symptoms reported Cardiovascular: denies: chest pain Endocrine: no symptoms reported Gastrointestinal: abdominal pain. denies: nausea, vomiting, diarrhea Genitourinary: denies: dysuria Musculoskeletal: denies: back pain Neurological: denies: headache Physical Exam - Physical Exam Vital Signs: Vital Signs 12/13/18 12/13/18 12/13/18 10:59 14:09 15:19 Temperature 98 F Pulse Rate 117 H 55 L Respiratory 18 20 Rate Blood Pressure 218/141 Blood Pressure 198/156 [Right] O2 Sat by Pulse 97 99 96 Oximetry 12/13/18 12/13/18 12/13/18 15:28 15:29 15:31 Temperature Pulse Rate 102 H 94 H Respiratory 18 20 20 Rate Blood Pressure 198/95 Blood Pressure 151/125 [Right] O2 Sat by Pulse 97 94 Oximetry 12/13/18 12/13/18 15:45 16:01 Temperature Pulse Rate 91 H 88 Respiratory 20 21 Rate Blood Pressure 198/95 222/144 Blood Pressure [Right] O2 Sat by Pulse 95 95 Oximetry Physical Exam: GENERAL: The patient is well-developed well-nourished male lying on stretcher not appearing to be in acute distress. [] HEENT: Normocephalic. Atraumatic. Extraocular motions are intact. Patient has moist mucous membranes. NECK: Supple. Trachea midline CHEST/LUNGS: Clear to auscultation. There is no respiratory distress noted. HEART/CARDIOVASCULAR: Regular. There is no tachycardia. There is no gallop rub or murmur. ABDOMEN: Abdomen is soft, with mild discomfort to palpation in the right lower quadrant and right upper quadrant. Patient has normal bowel sounds. There is no abdominal distention. SKIN: There is no rash. There is no edema. There is no diaphoresis. NEURO: The patient is awake, alert, and oriented. The patient is cooperative. The patient has normal speech MUSCULOSKELETAL: There is no CVA tenderness. There is no evidence of acute injury. ED Course Vital Signs 12/13/18 12/13/1812/13/19 10:59 14:09 15:19 Temperature 98 F Pulse Rate 117 H 55 L Respiratory 18 20 Rate Blood Pressure 218/141 Blood Pressure 198/156 [Right] O2 Sat by Pulse 97 99 96 Oximetry 12/13/18 12/13/18 12/13/18 15:28 15:29 15:31 Temperature Pulse Rate 102 H 94 H Respiratory 18 20 20 Rate Blood Pressure 198/95 Blood Pressure 151/125 [Right] O2 Sat by Pulse 97 94 Oximetry 12/13/18 12/13/18 15:45 16:01 Temperature Pulse Rate 91 H 88 Respiratory 20 21 Rate Blood Pressure 198/95 222/144 Blood Pressure [Right] O2 Sat by Pulse 95 95 Oximetry - Consultations Consultation #1: 12/13/18 16:[address] Wong (vascular surgery)- will review CT when it is performed 12/13/18 21:11 Vascular surgery paged 12/13/18 21:[address] Partida-recommends admitting the patient for blood pressure control (systolic less than 120). ED Medical Decision Making - Lab Data Result diagrams: 12/13/18 11:14 12/13/18 11:14 Laboratory Tests 12/13/18 12/13/18 12/13/18 11:14 11:14 11:29 WBC 11.0 RBC 5.90 H Hgb 17.0 H Hct 49.7 H MCV 84 MCH 29 MCHC 34 RDW 15.9 H Plt Count 246 Lymph % (Auto) 23.5 [place] % (Auto) 9.9 H Eos % (Auto) 2.4 Baso % (Auto) 1.0 Lymph # 2.6 [place] # 1.1 H Eos # 0.3 Baso # 0.1 Seg Neutrophils % 63.2 Seg Neutrophils # 6.9 Sodium 140 Potassium 3.5 L Chloride 98.2 Carbon Dioxide 27 Anion Gap 18 BUN 19 Creatinine 1.2 Estimated GFR > 60 BUN/Creatinine Ratio 16 Glucose 97 Calcium 9.6 Total Bilirubin 0.40 AST 20 ALT 29 Alkaline Phosphatase 115 Total Protein 8.3 H Albumin 4.1 Albumin/Globulin Ratio 1.0 Lipase 22 Urine Color Yellow Urine Turbidity Clear Urine pH 5.0 Ur Specific [place] 1.025 Urine Protein 30 mg/dl Urine Glucose (UA) Neg Urine Ketones Tr Urine Blood Neg Urine Nitrite Neg Urine Bilirubin Neg Urine Urobilinogen < 2.0 Ur Leukocyte Esterase Neg Urine WBC (Auto) 1.0 Urine RBC (Auto) 2.0 Urine Mucus Few - EKG Data -: EKG Interpreted by Pa EKG shows normal: sinus rhythm Rate: normal - EKG Data When compared to previous EKG there are: previous EKG unavailable Interpretation: other (PACs. No ischemic changes seen) - Radiology Data Radiology results: report reviewed (CT abdomen and pelvis), image reviewed (CT abdomen and pelvis) [facility] [address] [place] [address] Cat Scan Report Signed Patient: MILI SHEA JR MR# : [id number] : 1975 Acct:[id number] Age/Sex: 43 / M ADM Date: 12/13/18 Loc: ED Attending Dr: Ordering Physician: ROBERTO SMITH MD Date of Service: 12/13/18 Procedure(s): CT angio abdomen pelvis Accession Number(s): [id number] cc: ROBERTO SMITH MD CLINICAL DATA: RLQ abdominal pain X 12 HOUR TECHNICAL DATA: Following dynamic intravenous nonionic contrast infusion, multiple axial helical overlapped CT with multiplanar reconstructions were obtained. All CT data was transferred to a 3D workstation for multiplanar reformation and 3D reconstruction under concurrent physician supervision. All CT scans at this location are performed using CT dose reduction for ALARA by means of automated exposure control. FINDINGS: CTA ABDOMEN PELVIS: Again noted is the descending thoracic and abdominal aortic dissection extending into the iliac arteries. The celiac axis is patent extending from the true lumen. The origin of the superior mesenteric artery is patent extending from the true lumen. There are single bilateral renal arteries extending from the true lumen without evidence of stenosis or occlusion. The infrarenal abdominal aorta extensive changes of dissection -aneurysmal dilatation without interval change as compared to recent exam 12/12/2017. The AP diameter of the abdominal aorta is 6.2 cm. Again noted is the large iliac artery aneurysms with dissection present. The diameter of the right common iliac artery is 5.4 cm in the diameter of the left common iliac artery is 4.05 cm. The false lumen extends into the right common iliac artery. The external iliac arteries are patent with ectatic changes without evidence of dissection CT ABDOMEN PELVIS: Noncontrast imaging of the upper abdomen fails to demonstrate abnormal calcifications, cholelithiasis, or nephrolithiasis. Normal enhancement of the liver and spleen are present. No focal parenchymal abnormalities are identified. The gallbladder, pancreas, adrenal glands, and kidneys are within normal limits. There is no evidence of biliary ductal dilatation. The portal and hepatic veins are patent. No definite intraabdominal or retroperitoneal lymphadenopathy is identified. The bowel gas pattern is nonspecific and nonobstructive. Appendix is well imaged and normal There is no evidence of free intraperitoneal air or free intraperitoneal fluid. CT through the pelvis reveals the bladder to be well distended and smooth in contour. There is no evidence of free air or free fluid within the pelvis. No focal soft tissue mass lesions or lymphadenopathy identified. IMPRESSION: Markedly abnormal CTA abdomen and pelvis without significant interval change as compared to 12/12/2017. Descending thoracic-abdominal aortic aneurysm with dissection as noted. No change in the size of the aneurysm of the aorta as compared to previous exam Signer Name: Sheldon Gresham MD Signed: 12/13/2018 8:43 PM Workstation Name: [id number] Transcribed By: WG Dictated By: Sheldon Gresham MD Electronically Authenticated By: Sheldon Gresham MD Signed Date/Time: 12/13/182042 DD/ 15 TD/TT: - Differential Diagnosis aortic dissection, aortic aneurysm, appendicitis, renal colic Critical care attestation.: If time is entered above; I have spent that time in minutes in the direct care of this critically ill patient, excluding procedure time. ED Disposition Clinical Impression: Acute abdominal pain, Aortic dissection, Hypertensive crisis Disposition: 09 OP ADMIT IP TO THIS HOSP Is pt being admited?: Yes Does the pt Need Aspirin: No Condition: Fair Instructions: Hypertension (ED) Referrals: [facility] MD MONIE [Primary Care Provider] - 3-5 Days Time of Disposition: 21:22 (hospitalist paged (Dr Junior))
[2018-12-13] MEDS ORDERED: CATAPRES PO ONE ×2 (18:07→18:12)
--- NOTE | 2018-12-13 20:48 | Cat Scan Report ---
CLINICAL DATA: RLQ abdominal pain X 12 HOUR TECHNICAL DATA: Following dynamic intravenous nonionic contrast infusion, multiple axial helical overlapped CT with multiplanar reconstructions were obtained. All CT data was transferred to a 3D workstation for multi planar reformation and 3D reconstruction under concurrent physician supervision. All CT scans at this location are performed using CT dose reduction for ALARA by means of automated exposure control. FINDINGS: CTA ABDOMEN PELVIS: Again noted is the descending thoracic and abdominal aortic dissection extending into the iliac arter ies. The celiac axis is patent extending from the true lumen. The origin of the superior mesenteric artery is patent extending from the true lumen. There are single bilateral renal arteries extending from th e true lumen without evidence of stenosis or occlusion. The infrarenal abdominal aorta extensive gallo ges of dissection -aneurysmal dilatation without interval change as compared to recent exam 12/12/2017 . The AP diameter of the abdominal aorta is 6.2 cm. Again noted is the large iliac artery aneurysms with dissection present. The diameter of the right co mmon iliac artery is 5.4 cm in the diameter of the left common iliac artery is 4.05 cm. The false lum en extends into the right common iliac artery. The external iliac arteries are patent with ectatic ch anges without evidence of dissection CT ABDOMEN PELVIS: Noncontrast imaging of the upper abdomen fails to demonstrate abnormal calcifications, cholelithiasis , or nephrolithiasis. Normal enhancement of the liver and spleen are present. No focal parenchymal abnormalities are identi fied. The gallbladder, pancreas, adrenal glands, and kidneys are within normal limits. There is no evidence of biliary ductal dilatation. The portal and hepatic veins are patent. No definite intraab dominal or retroperitoneal lymphadenopathy is identified. The bowel gas pattern is nonspecific and n onobstructive. Appendix is well imaged and normal There is no evidence of free intraperitoneal air or free intraperitoneal fluid. CT through the pelvis reveals the bladder to be well distended and smooth in contour. There is no ev idence of free air or free fluid within the pelvis. No focal soft tissue mass lesions or lymphadenop athy identified. IMPRESSION: Markedly abnormal CTA abdomen and pelvis without significant interval change as compared to 12/12/2017 . Descending thoracic-abdominal aortic aneurysm with dissection as noted. No change in the size of th e aneurysm of the aorta as compared to previous exam Signer Name: Sheldon Gresham MD Signed: 12/13/2018 8:43 PM Workstation Name: [id number]
[2018-12-13] MEDS ORDERED: APRESOLINE IV PRN (22:47)
[2018-12-13] MEDS ORDERED: MORPHINE IV PRN (22:49)
[2018-12-13] MEDS ORDERED: ZOFRAN IV PRN (22:49)
[2018-12-13] MEDS ORDERED: TYLENOL PO PRN (22:50)
--- NOTE | 2018-12-14 06:17 | History and Physical Report ---
CHIEF COMPLAINT: Right lower quadrant abdominal pain. HISTORY OF PRESENT ILLNESS: The patient is a 43-year-old male who started having pain in the right lower quadrant area going on since yesterday. There is no history of fever or chills. No associated history of nausea, vomiting, or diarrhea. The patient described the pain as squeezing in nature. There is no history of melena or hematochezia or hematemesis. PAST MEDICAL HISTORY: Pertinent for hypertension, congestive heart failure, diabetes mellitus, abdominal aortic dissection, Gamez's palsy. PAST SURGICAL HISTORY: Pertinent for fracture, jaw repair. FAMILY HISTORY: Noncontributory. SOCIAL HISTORY: The patient does not smoke, does not drink alcohol and does not use illicit drugs. MEDICATIONS: The patient is on Pepcid 20 mg by mouth twice daily, Lasix 40 mg by mouth daily, lisinopril 40 mg by mouth daily, Coumadin 10 mg by mouth daily, Norvasc 5 mg by mouth daily, Lipitor 40 mg by mouth daily, Cardura 4 mg by mouth twice daily, Lopressor 100 mg by mouth twice daily, metformin 500 mg by mouth in the morning and another Coumadin 2 mg on some days. ALLERGIES: There are no known drug allergies. REVIEW OF SYSTEMS: CONSTITUTIONAL: There is no fever, no chills, no diaphoresis. HEENT: There is headache or sore throat. CARDIOVASCULAR SYSTEM: There is no chest pain or orthopnea. RESPIRATORY SYSTEM: There is no shortness of breath or cough. GASTROINTESTINAL SYSTEM: Abdominal pain present. No nausea, no vomiting, no diarrhea or constipation. NEUROLOGICAL SYSTEM: There is no numbness, no dizziness, no altered mental status. MUSCULOSKELETAL SYSTEM: There is no joint pain or swelling. DERMATOLOGIC SYSTEM: There is no skin rash or itching. GENITOURINARY SYSTEM: There is no dysuria, hematuria, or flank pain. Rest of system review is normal. PHYSICAL EXAMINATION: GENERAL: At the time of exam, the patient was found to be alert, oriented x 3, and not in acute distress. VITAL SIGNS: At the initial time of presentation show temperature of 98, pulse of 107, respirations 18, initial blood pressure of 218/141, O2 sat of 97% on room air and the blood pressure later on came down to 161/125 and then finally blood pressure came down to 138/82. HEENT: Show pupils to be equal, round, reactive to light and accommodating. Extraocular muscles are intact. NECK: Supple with no JVD or carotid bruit. CARDIOVASCULAR SYSTEM: Showed normal first and second heart sounds with no gallops or murmurs. RESPIRATORY SYSTEM: Show good air entry on both sides of the lungs with no abnormal breath sounds. GASTROINTESTINAL SYSTEM: Showed abdomen to be full, soft with tenderness in the right upper quadrant and right lower quadrant area with no rigidity but there is no organomegaly elicited. Bowel sound is normal. NEUROLOGICAL SYSTEM: Show no focal deficit. MUSCULOSKELETAL SYSTEM: Show no joint swelling or tenderness. DERMATOLOGICAL SYSTEM: Show no skin rash. GENITOURINARY SYSTEM: Showing no costovertebral angle tenderness. PERTINENT LABORATORY DATA AND IMAGING STUDIES: The patient had a CT angiogram of the abdomen done that shows markedly abnormal CT angiogram abdomen and pelvis without significant interval change as compared to the one done on 12/12/2017. There is finding of descending thoracic abdominal aortic aneurysm with dissection as noted and there is no change in size of the aneurysm of the aorta as compared to previous exam. Lab results, the patient has CBC done with normal white count, elevated hemoglobin of 17 and elevated hematocrit of 49.7 with normal MCV and unremarkable CBC differential. The patient's chemistry shows slight decrease in potassium level of 3.5. Urinalysis was unremarkable. DIAGNOSES: 1. Dissecting descending aortic aneurysm. 2. Abdominal pain. 3. Hypoxemia. PLAN OF CARE: 1. The patient will be admitted to medical/surgical sood. 2. The patient will have Vascular surgical consult with Dr. Munir Partida who was notified by the Emergency Room physician. 3. The patient will be on his home medication as shown in the medication reconciliation section. 4. The patient will be on IV hydralazine 10 mg every 4 hours as needed for blood pressure of 150/90 or greater. 5. The patient will be on IV morphine 2 mg every 3 hours as needed for pain and IV Zofran 4 mg every 8 hours as needed for nausea and vomiting. 6. The patient's DVT will be through sequential compressive device. 7. The patient's diet will be consistent carbohydrate 2 gram sodium diet. 8. The patient will be on Accu-Chek a.c. and at bedtime, followed by low-dose sliding scale using regular insulin coverage. JOB# [id number] OCN/NTS
[2018-12-14] MEDS: LOPRESSOR PO SCH ×2 (08:37→18:21)
[2018-12-14] MEDS ORDERED: NORVASC PO SCH ×2 (10:00→17:17)
[2018-12-14] MEDS: ZESTRIL PO SCH (12:06)
[2018-12-14] MEDS: LASIX PO SCH (12:07)
[2018-12-14] MEDS: PEPCID PO SCH ×2 (12:07→22:12)
[2018-12-14] MEDS: CARDURA PO SCH ×2 (12:08→22:12)
--- NOTE | 2018-12-14 16:36 | Consultation ---
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 He presented to the emergency department with complaints of right groin pain that worsened throughout the day. He was initially seen by our service exactly 1 year ago with the same findings and at that time it was suggested that he follow up with [facility] for definitive care of the aneurysm, as this was too complex for management in the perioperative period to be managed at this institution. He was also recommended that he have better blood pressure control. The patient states that he did not take his hypertensive medications the day prior to admission secondary to not feeling well and upon admission his systolic blood pressure was 200. Since a dmission his pain is improved however his systolic blood pressures remained in the 150s to 160s. He has no additional complaints at this time. Past History Past Medical History: hypertension, other (thoracoabdominal aneurysm with dissection, Gamez's palsy) Past Surgical History: Other (jaw fracture repair) Social history: no significant social history Medications and Allergies Allergies Allergy/AdvReac Type Severity Reaction Status Date / Time No Known Allergies Allergy Verified 12/12/17 03:37 Home Medications Medication Instructions Recorded Confirmed Last Taken Type Famotidine [Pepcid] 20 mg PO BID #60 tablet 12/23/17 12/13/18 12/12/18 Rx Furosemide [Lasix TAB] 40 mg PO QDAY #30 tablet 12/23/17 12/13/18 12/12/18 Rx Lisinopril [Zestril TAB] 40 mg PO QDAY #30 tablet 12/23/17 12/13/18 12/12/18 Rx Warfarin [Coumadin] 10 mg PO DAILY@1700 #30 tablet 12/23/17 12/13/18 12/12/18 Rx Amlodipine Besylate [Norvasc] 5 mg PO QDAY 12/13/18 12/13/18 12/12/18 History AtorvaSTATin [Lipitor] 40 mg PO QDAY 12/13/18 12/13/18 12/12/18 History Doxazosin [Cardura] 4 mg PO BID 12/13/18 12/13/18 12/12/18 History Metoprolol [Lopressor] 100 mg PO BIDWM 12/13/18 12/13/18 12/12/18 History Warfarin [Coumadin] 2 mg PO QDAY 12/13/18 12/13/18 12/12/18 History metFORMIN [Glucophage] 500 mg PO QAM 12/13/18 12/13/18 12/12/18 History Active Meds: Active Medications Acetaminophen (Tylenol) 650 mg PO Q4H PRN PRN Reason: Headache Last Admin: 12/14/18 08:35 Dose: 650 mg Documented by: Amlodipine Besylate (Norvasc) 5 mg PO QDAY [facility] Last Admin: 12/14/18 12:07 Dose: 5 mg Documented by: Atorvastatin Calcium (Lipitor) 40 mg PO QDAY [facility] Last Admin: 12/14/18 12:06 Dose: 40 mg Documented by: Doxazosin Mesylate (Cardura) 4 mg PO BID [facility] Last Admin: 12/14/18 12:08 Dose: 4 mg Documented by: Famotidine (Pepcid) 20 mg PO BID [facility] Last Admin: 12/14/18 12:07 Dose: 20 mg Documented by: Furosemide (Lasix) 40 mg PO QDAY [facility] Last Admin: 12/14/18 12:07 Dose: 40 mg Documented by: Hydralazine HCl (Apresoline) 10 mg IV Q4H PRN PRN Reason: Blood Pressure Last Admin: 12/14/18 06:31 Dose: 10 mg Documented by: Lisinopril (Zestril) 40 mg PO QDAY [facility] Last Admin: 12/14/18 12:06 Dose: 40 mg Documented by: Metoprolol Tartrate (Lopressor) 100 mg PO BID@0800,1700 [facility] Last Admin: 12/14/18 08:37 Dose: 100 mg Documented by: Morphine Sulfate (Morphine) 2 mg IV Q3H PRN PRN Reason: Pain, Moderate (4-6) Ondansetron HCl (Zofran) 4 mg IV Q8H PRN PRN Reason: Nausea And Vomiting Review of Systems All systems: negative Exam - Constitutional Vitals: Temp Pulse Resp BP Pulse Ox 98.4 F 60 20 147/70 96 12/14/18 12:05 12/14/18 12:05 12/14/18 12:05 12/14/18 12:05 12/14/18 12:05 General appearance: Present: no acute distress - Neck Neck: Present: supple - Respiratory Respiratory effort: normal - Cardiovascular Rhythm: regular - Extremities Extremities: no ischemia, pulses intact, pulses symmetrical Extremity abnormal: edema (bilateral lower extremities) Peripheral Pulses: within normal limits - Abdominal General gastrointestinal: Present: soft, non-tender, non-distended - Rectal Rectal Exam: deferred - Integumentary Integumentary: Present: clear - Musculoskeletal Musculoskeletal: strength equal bilaterally Results - Labs CBC & Chem 7: 12/13/18 11:14 12/13/18 11:14 - Imaging and Cardiology CT scan - abdomen: image reviewed CT scan - pelvis: image reviewed Assessment and Plan Patient is a 43-year-old male with a history of thoracoabdominal aneurysm with dissection. She is aneurysm of the abdominal aorta as well as the right common iliac is above the surgical threshold however given the dissection component and the involvement of the thoracic aorta aneurysm is too complex to be repaired and the postoperative care which may require emergent spinal drainage cannot be handled in this facility. The patient should be referred to [facility] for definitive care. In addition to surgical repair the patient's systolic blood pressure remains well above the 150s and needs to be better controlled with a systolic blood pressure ideally less than 120 with a heart rate less than 60.
--- NOTE | 2018-12-14 17:15 | Progress Note ---
Assessment and Plan Assessment and plan: Patient is a 43 year old male with hx arotic dissection of admitted with concern of AAA dissection after presenting to the ED with complaints of non toxic abdominal pain. CT A/P Markedly abnormal CTA abdomen and pelvis without significant interval change as compared to 12/12/2017. Descending thoracic-abdominal aortic aneurysm with dissection as noted. No change in the size of the aneurysm of the aorta as compared to previous exam Dissecting AAA Abdominal pain Morbid Obesity Diabetes Mellitus with Hypgerglycemia Secondary [place] state Hypertension Plan Await Vascular consult Resume Home meds including Coumadin Pain is improved Better control BP based on Vascular recommendation Start on oral diet DVT/GI prophy History Interval history: Patient seen and examined, no new complaints. Hospitalist Physical - Constitutional Vitals: Temp Pulse Resp BP Pulse Ox 98.4 F 60 20 147/70 96 12/14/18 12:05 12/14/18 12:05 12/14/18 12:05 12/14/18 12:05 12/14/18 12:05 General appearance: Present: no acute distress, well-nourished, obese (morbid) - EENT Eyes: Present: PERRL, EOM intact ENT: clear oral mucosa - Neck Neck: Present: supple, normal ROM - Respiratory Respiratory effort: normal Respiratory: bilateral: CTA - Cardiovascular Rhythm: regular Heart Sounds: Present: S1 & S2. Absent: systolic murmur - Extremities Extremities: no ischemia, pulses intact, pulses symmetrical, No edema, normal temperature, normal color, Full ROM - Abdominal General gastrointestinal: soft, non-tender, tender, normal bowel sounds Localized gastrointestinal: tender: RUQ - Integumentary Integumentary: Present: clear, warm, dry - Psychiatric Psychiatric: appropriate mood/affect, intact judgment & insight - Neurologic Neurologic: CNII-XII intact, moves all extremities - Allied Health Allied health notes reviewed: nursing Results - Labs CBC & Chem 7: 12/13/18 11:14 12/13/18 11:14 Labs: Laboratory Last Values WBC 11.0 K/mm3 (4.5-11.0) 12/13/18 11:14 RBC 5.90 M/mm3 (3.65-5.03) H 12/13/18 11:14 Hgb 17.0 gm/dl (11.8-15.2) H 12/13/18 11:14 Hct 49.7 % (35.5-45.6) H 12/13/18 11:14 MCV 84 fl (84-94) 12/13/18 11:14 MCH 29 pg (28-32) 12/13/18 11:14 MCHC 34 % (32-34) 12/13/18 11:14 RDW 15.9 % (13.2-15.2) H 12/13/18 11:14 Plt Count 246 K/mm3 (140-440) 12/13/18 11:14 Lymph % (Auto) 23.5 % (13.4-35.0) 12/13/18 11:14 [place] % (Auto) 9.9 % (0.0-7.3) H 12/13/18 11:14 Eos % (Auto) 2.4 % (0.0-4.3) 12/13/18 11:14 Baso % (Auto) 1.0 % (0.0-1.8) 12/13/18 11:14 Lymph # 2.6 K/mm3 (1.2-5.4) 12/13/18 11:14 [place] # 1.1 K/mm3 (0.0-0.8) H 12/13/18 11:14 Eos # 0.3 K/mm3 (0.0-0.4) 12/13/18 11:14 Baso # 0.1 K/mm3 (0.0-0.1) 12/13/18 11:14 Seg Neutrophils % 63.2 % (40.0-70.0) 12/13/18 11:14 Seg Neutrophils # 6.9 K/mm3 (1.8-7.7) 12/13/18 11:14 Sodium 140 mmol/L (137-145) 12/13/18 11:14 Potassium 3.5 mmol/L (3.6-5.0) L 12/13/18 11:14 Chloride 98.2 mmol/L (98-107) 12/13/18 11:14 Carbon Dioxide 27 mmol/L (22-30) 12/13/18 11:14 18 mmol/L 12/13/18 11:14 BUN 19 mg/dL (9-20) 12/13/18 11:14 1.2 mg/dL (0.8-1.5) 12/13/18 11:14 Estimated GFR > 60 ml/min 12/13/18 11:14 16 % 12/13/18 11:14 Glucose 97 mg/dL (75-100) 12/13/18 11:14 Calcium 9.6 mg/dL (8.4-10.2) 12/13/18 11:14 0.40 mg/dL (0.1-1.2) 12/13/18 11:14 AST 20 units/L (5-40) 12/13/18 11:14 ALT 29 units/L (7-56) 12/13/18 11:14 115 units/L (35-129) 12/13/18 11:14 8.3 g/dL (6.3-8.2) H 12/13/18 11:14 4.1 g/dL (3.9-5) 12/13/18 11:14 1.0 % 12/13/18 11:14 22 units/L (13-60) 12/13/18 11:14 Yellow (Yellow) 12/13/18 11:29 Clear (Clear) 12/13/18 11:29 5.0 (5.0-7.0) 12/13/18 11:29 Ur Specific [place] 1.025 (1.003-1.030) 12/13/18 11:29 30 mg/dl mg/dL (Negative) 12/13/18 11:29 Neg mg/dL (Negative) 12/13/18 11:29 Tr mg/dL (Negative) 12/13/18 11:29 Neg (Negative) 12/13/18 11:29 Neg (Negative) 12/13/18 11:29 Neg (Negative) 12/13/18 11:29 < 2.0 mg/dL (<2.0) 12/13/18 11:29 Ur Leukocyte Esterase Neg (Negative) 12/13/18 11:29 1.0 /HPF (0.0-6.0) 12/13/18 11:29 2.0 /HPF (0.0-6.0) 12/13/18 11:29 Few /HPF 12/13/18 11:29 Active Medications - Current Medications Current Medications: Generic Name Dose Route Start Last Admin Trade Name Idalmis PRN Reason Stop Dose Admin Acetaminophen 650 mg 12/13/18 22:50 12/14/18 08:35 Tylenol PO 650 mg Q4H PRN Administration Headache Amlodipine Besylate 5 mg 12/14/18 10:00 12/14/18 12:07 Norvasc PO 5 mg QDAY SILVIA Administration Atorvastatin Calcium 40 mg 12/14/18 10:00 12/14/18 12:06 Lipitor PO 40 mg QDAY SILVIA Administration Doxazosin Mesylate 4 mg 12/14/18 10:00 12/14/18 12:08 Cardura PO 4 mg BID SILVIA Administration Famotidine 20 mg 12/14/18 10:00 12/14/18 12:07 Pepcid PO 20 mg BID SILVIA Administration Furosemide 40 mg 12/14/18 10:00 12/14/18 12:07 Lasix PO 40 mg QDAY SILVIA Administration Hydralazine HCl 10 mg 12/13/18 22:47 12/14/18 06:31 Apresoline IV 10 mg Q4H PRN Administration Blood Pressure Lisinopril 40 mg 12/14/18 10:00 12/14/18 12:06 Zestril PO 40 mg QDAY SILVIA Administration Metoprolol Tartrate 100 mg 12/14/18 08:00 12/14/18 08:37 Lopressor PO 100 mg BID@0800,1700 SILVIA Administration Morphine Sulfate 2 mg 12/13/18 22:49 Morphine IV Q3H PRN Pain, Moderate (4-6) Ondansetron HCl 4 mg 12/13/18 22:49 Zofran IV Q8H PRN Nausea And Vomiting
[2018-12-14] MEDS ORDERED: NORVASC PO ONE (17:17)
[2018-12-14 20:53] LABS: INR 1.1 (0.87-1.13)
[2018-12-14] MEDS ORDERED: COUMADIN PO ONE (22:00)
[2018-12-15] MEDS: COLACE PO SCH ×2 (00:25→09:27)
[2018-12-15] MEDS: PEPCID PO SCH (09:26)
[2018-12-15] MEDS: LASIX PO SCH (09:27)
[2018-12-15] MEDS: LOPRESSOR PO SCH (09:27)
[2018-12-15] MEDS: ZESTRIL PO SCH (09:27)
[2018-12-15] MEDS: CARDURA PO SCH (09:28)
[2018-12-15] MEDS ORDERED: NORVASC PO SCH (10:00)
--- NOTE | 2018-12-15 11:44 | Discharge Summary ---
Providers - Providers Date of Admission: 12/13/18 22:43 Attending physician: FRANCIS DESAI MD 12/13/18 22:45 Consult to Physician [CONS] Routine Comment: Consulting Provider: ABBY APODACA Physician Instructions: VASCULAR SURGEON AWARE Reason For Exam: CHRONIC DISECTION OF THORACOLUMBER AORTA Primary care physician: [facility] MD ZULY Hospitalization Condition: Fair Hospital course: Patient is a 43 year old male with hx arotic dissection of admitted with concern of AAA dissection after presenting to the ED with complaints of non toxic abdominal pain. CT A/P Markedly abnormal CTA abdomen and pelvis without significant interval change as compared to 12/12/2017. Descending thoracic-abdominal aortic aneurysm with dissection as noted. No change in the size of the aneurysm of the aorta as compared to previous exam Dissecting AAA Abdominal pain Morbid Obesity Diabetes Mellitus with Hypgerglycemia Secondary [place] state Hypertension Plan vascular consult noted Resume Home meds including Coumadin Pain is improved Better control BP based on Vascular recommendation Start on oral diet DVT/GI prophy Disposition: DC- TO HOME OR SELFCARE Time spent for discharge: 35 mins Core Measure Documentation - Palliative Care Palliative Care/ Comfort Measures: Not Applicable Exam - Constitutional Vitals: Temp Pulse Resp BP Pulse Ox 98.4 F 86 20 108/63 92 12/15/18 05:37 12/15/18 09:27 12/15/18 05:37 12/15/18 09:28 12/15/18 05:37 Plan Activity: advance as tolerated, fall precautions Diet: low fat, diabetic Special Instructions: record daily weights, record daily BP diary, record blood sugar diary Additional Instructions: Must follow at [facility] IN 1 WEEK Follow up with: BAYLEE HUFFMAN MD [Primary Care Provider] - 3-5 Days ABBY APODACA MD [Staff Physician] - 7 Days Forms: Warfarin Discharge Instruction Prescriptions: Docusate Sodium [Colace CAP] 100 mg PO BID #30 capsule Amlodipine Besylate [Norvasc] 5 mg PO QDAY #30 tablet
[2018-12-15 11:51] LABS: INR 1.12 (0.87-1.13)
[2018-12-15 12:55] VITALS: BP 95/52
[2018-12-15] MEDS ORDERED: COUMADIN PO SCH ×2 (17:00)
== END 2018-12-15 13:50 | disposition home or self-care (01) | DRG 300 ==
LOC: ED 10:46 → 3A 22:43
PROVIDERS: ADMIT Internal Medicine; ATTEND Internal Medicine
DX: I71.03 Dissection of thoracoabdominal aorta (principal); Z68.43 Body mass index [BMI] 50.0-59.9, adult; D68.69 Other thrombophilia; I16.9 Hypertensive crisis, unspecified; E66.01 Morbid (severe) obesity due to excess calories; E11.65 Type 2 diabetes mellitus with hyperglycemia; R09.02 Hypoxemia; I11.0 Hypertensive heart disease with heart failure; I50.9 Heart failure, unspecified; Z79.899 Other long term (current) drug therapy
CPT/HCPCS: 36415; 74174; 80053; 81001; 83690; 85025; 85610; 93005; 93010; 96374; 96375; G0378; A9270-GY; J0360; J2405; J3010; Q9967